=== PATIENT | female | born 1945 | race Caucasian/White ===

== ENCOUNTER 2021-02-03 14:55 | Inpatient (IN) ==
--- NOTE | 2021-02-03 15:20 | Emergency Department Note ---
Altered Mental Status HPI General Chief Complaint: Altered Mental Status Stated Complaint: confusion hypernatremia Time Seen by Provider: 02/03/21 15:07 Source: EMS and other Mode of arrival: EMS Limitations: altered mental status History of Present Illness HPI Narrative: This a 76-year-old female patient who lives in an adult family home with baseline cognitive dysfunction who's had worsening altered mental status over the last 2 1/2 weeks. She saw her PCP, Estelita Tirado, yesterday, and had lab work drawn that revealed a sodium of 154. For this reason she was sent over here today for evaluation. The patient has a POLST form that clearly states DNR/DNI comfort measures only. This was signed by her in 2019. Patient is currently confused and does not have executive function to verify this. I have discussed her with her primary care provider, Estelita Tirado, who states that this patient is significantly altered from her baseline and she is concerned that she has a UTI and is likely dehydrated and would like to have her admitted if indicated. The patient does not have a DPOA, and per talking to her adult family home they are working on obtaining guardianship for her. The patient is altered and unable to give me either a clear medical history or review of systems. Related Data Home Medications Medication Instructions Recorded Confirmed diltiazem HCl 30 mg PO TID 10/03/17 02/04/21 docusate sodium [Dulcolax Stool 100 mg PO DAILYP PRN 10/03/17 02/04/21 Softener] lorazepam 0.5 mg PO TID 10/03/17 02/04/21 polyethylene glycol 3350 [Miralax] 17 gm PO DAILY 10/03/17 02/04/21 sertraline 100 mg PO QHS 10/03/17 02/04/21 albuterol sulfate [Ventolin HFA] 2 puff INHALATION QAM 04/27/20 02/04/21 alprazolam [Xanax] 0.5 mg PO TID 04/27/20 02/04/21 betamethasone, augmented 1 applic TOPICAL BID 04/27/20 02/04/21 [Diprolene] minocycline 100 mg PO BID 04/27/20 02/04/21 naproxen sodium 220 - 440 mg PO BID 04/27/20 02/04/21 trazodone 50 mg PO QHS 04/27/20 02/04/21 nystatin 1 applic TOPICAL BIDP PRN 04/29/20 02/04/21 furosemide 40 mg PO QAM 02/03/21 02/04/21 metolazone 2.5 mg PO 3XW 02/03/21 02/04/21 spironolactone 25 mg PO QAM 02/03/21 02/04/21 triamcinolone acetonide 1 applic TOPICAL BID 02/03/21 02/04/21 alprazolam 0.5 mg PO Q6HP PRN 02/04/21 02/04/21 [id number]-vit [id number]-yxlmq-uxqk-zeax 1 tab PO QAM 02/04/21 02/04/21 [Ocuvite Eye Plus Multi] potassium chloride [Klor-Con M20] 20 meq PO QDAY 02/04/21 02/04/21 trazodone 50 mg PO QHS PRN 02/04/21 02/04/21 Allergies Allergy/AdvReac Type Severity Reaction Status Date / Time Amoxicillin Allergy Unknown Unknown Verified 11/24/20 14:11 Erythromycin Base Allergy Unknown UNKNOWN Verified 11/24/20 14:11 [ERYTHROMYCIN BASE] terfenadine [From SELDANE] Allergy Unknown UNKNOWN Verified 11/24/20 14:11 Review of Systems ROS ROS Narrative: Narrative: Limitations: ROS unobtainable due to patients medical condition [facility] Narrative Patient History Narrative: Narrative: Medical/Surgical/Family History All Active Problems (Updated 02/03/21 @ 22:18 by Rolf Torrez MD) Urinary tract infection (Acute) Dehydration (Acute) Altered mental status (Acute) Acute hypernatremia (Acute) Acute hypokalemia (Acute) Non-ST elevation [place] (NSTEMI) (Acute) Urinary tract infection in female (Acute) SVT (supraventricular tachycardia) (Acute) ADA (acute kidney injury) (Acute) Altered mental status (Acute) Acute hypokalemia (Acute) Hypernatremia (Acute) Acute prerenal azotemia (Acute) SVT (supraventricular tachycardia) (Acute) Pneumonia (Acute) Medical History COPD (chronic obstructive pulmonary disease) GERD (gastroesophageal reflux disease) Social History Smoking Status: Former smoker Exam Narrative Narrative: General: Alert and oriented to self only. Mostly nonverbal, NAD, c achectic. HEENT: PERRLA, EOMI, normocephalic. Extremely dry mucous membranes. Facial wasting and normal dentition. Chest: Symmetric, no pain to palpation Respiratory: Lungs clear to auscultation bilaterally. No respiratory distress. Unlabored breathing. Heart: Regular rate and rhythm, no murmurs/clicks/rubs. Abdomen: Non-tender, Non distended, normal bowel tones. No organomegaly. Extremities: Warm and well perfused. No edema. DP 2+ bilaterally. No venous stasis. Neuro: No focal deficits. Cranial nerves II-XII normal. Skin: Warm dry, no rashes or lesions, no cyanosis. Psych: Normal mood and affect Heme/Lymph: No bruising General Limitations: altered mental status Course Course Course Narrative: 75-year-old female seen for worsening altered mental status and hypernatremia. Reevaluation(s) Reevaluation #1: Obtain basic labs, start IV fluids, obtain UA Reevaluation #2: UA is positive for UTI. I am giving her 1 g of IV ceftriaxone x1 dose. Sodium is 153. She also has an ADA with a creatinine of 1.7 and a BUN of 90. I have reached out to the hospitalist for admission. Disposition is pending. Vital Signs Vital signs: Vital Signs Temperature 98.7 F 02/03/21 15:02 Pulse Rate 101 H 02/03/21 15:02 Respiratory Rate 16 02/03/21 15:02 Blood Pressure 99/78 02/03/21 15:02 Pulse Oximetry (%) 94 02/03/21 15:02 Temperature 97.7 F 02/04/21 16:01 Pulse Rate 73 02/04/21 16:01 Respiratory Rate 8 L 02/04/21 16:01 Blood Pressure 92/59 02/04/21 16:01 Pulse Oximetry (%) 98 02/04/21 16:01 [facility] MDM Narrative Medical decision making narrative: Altered mental status Hypernatremia Hypokalemia Prerenal azotemia Patient is being admitted for the above. Patient has been signed out to Dr. Hernandez, hospitalist for admission. Lab Data Result diagrams: 02/04/21 04:12 02/04/21 04:12 Labs: Lab Results 0502/03/21 02/03/21 Range/Units 16:47 16:47 16:47 WBC 15.5 H (4.5-11.0) K/mcL RBC 5.12 (4.00-5.20) M/mcL Hgb 14.4 (12.0-15.0) g/dL Hct 45.7 (36.0-48.0) % MCV 89.3 (80.0-100.0) fL MCH 28.1 (26.0-34.0) pg MCHC 31.5 (31.0-36.0) g/dL RDW 16.1 H (11.5-14.5) % Plt Count 378 (140-440) K/mcL MPV 9.1 (7.4-10.4) fL Neut % (Auto) 85.2 H (38.0-78.0) % Lymph % (Auto) 6.7 L (15.0-49.0) % [place] % (Auto) 7.2 (1.0-12.0) % Eos % (Auto) 0.6 (0.0-7.0) % Baso % (Auto) 0.3 (0.0-2.0) % Lymph # (Auto) 1.04 L (1.50-4.80) K/mcL [place] # (Auto) 1.12 H (0.10-0.90) K/mcL Eos # (Auto) 0.09 (0.00-0.70) K/mcL Baso # (Auto) 0.05 (0.00-0.20) K/mcL Absolute Neutrophils 13.20 H (1.80-8.00) K/mcL Sodium 153 H (133-145) mmol/L Potassium 3.1 L (3.3-5.1) mmol/L Chloride 106 (96-108) mmol/L Carbon Dioxide 31 H (22-30) mmol/L Anion Gap 16.0 (8.0-16.0) BUN 90 H (8-23) mg/dL Creatinine 1.7 H (0.6-1.1) mg/dL GFR Calculation 29 Glucose 117 H (70-105) mg/dL Calcium 9.6 (8.6-10.4) mg/dL Magnesium 3.0 H (1.6-2.5) mg/dL Total Bilirubin 0.3 (0.1-1.0) mg/dL AST 15 (<32) U/L ALT 10 (<40) U/L Alkaline Phosphatase 136 H (39-117) U/L Total Protein 7.4 (5.9-8.4) gm/dL Albumin 3.9 (3.2-5.2) gm/dL Globulin 3.5 (2.2-3.7) gm/dL Albumin/Globulin Ratio 1.1 (1.0-2.3) Urine Color Urine Appearance (Clear) Urine pH (5.0-9.0) Ur Specific [place] (1.000-1.035) Urine Protein (Negative) mg/dL Urine Glucose (UA) (Negative) mg/dL Urine Ketones (Negative) mg/dL Urine Occult Blood (Negative) mg/dL Urine Nitrate (Negative) Urine Bilirubin (Negative) mg/dL Urine Urobilinogen mg/dL Ur Leukocyte Esterase (Negative) /ug Urine RBC (0-3) /hpf Urine WBC (0-4) /hpf Ur Squamous Epith Cells (0-4) /hpf Urine Bacteria (0) /hpf Hyaline Casts (0-2) /lph Ur Culture Indicated? 02/03/21 Range/Units 17:19 WBC (4.5-11.0) K/mcL RBC (4.00-5.20) M/mcL Hgb (12.0-15.0) g/dL Hct (36.0-48.0) % MCV (80.0-100.0) fL MCH (26.0-34.0) pg MCHC (31.0-36.0) g/dL RDW (11.5-14.5) % Plt Count (140-440) K/mcL MPV (7.4-10.4) fL Neut % (Auto) (38.0-78.0) % Lymph % (Auto) (15.0-49.0) % [place] % (Auto) (1.0-12.0) % Eos % (Auto) (0.0-7.0) % Baso % (Auto) (0.0-2.0) % Lymph # (Auto) (1.50-4.80) K/mcL [place] # (Auto) (0.10-0.90) K/mcL Eos # (Auto) (0.00-0.70) K/mcL Baso # (Auto) (0.00-0.20) K/mcL Absolute Neutrophils (1.80-8.00) K/mcL Sodium (133-145) mmol/L Potassium (3.3-5.1) mmol/L Chloride (96-108) mmol/L Carbon Dioxide (22-30) mmol/L Anion Gap (8.0-16.0) BUN (8-23) mg/dL Creatinine (0.6-1.1) mg/dL GFR Calculation Glucose (70-105) mg/dL Calcium (8.6-10.4) mg/dL Magnesium (1.6-2.5) mg/dL Total Bilirubin (0.1-1.0) mg/dL AST (<32) U/L ALT (<40) U/L Alkaline Phosphatase (39-117) U/L Total Protein (5.9-8.4) gm/dL Albumin (3.2-5.2) gm/dL Globulin (2.2-3.7) gm/dL Albumin/Globulin Ratio (1.0-2.3) Urine Color Yellow Urine Appearance Hazy A (Clear) Urine pH 5.0 (5.0-9.0) Ur Specific [place] 1.011 (1.000-1.035) Urine Protein Negative (Negative) mg/dL Urine Glucose (UA) Negative (Negative) mg/dL Urine Ketones Negative (Negative) mg/dL Urine Occult Blood Negative (Negative) mg/dL Urine Nitrate Negative (Negative) Urine Bilirubin Negative (Negative) mg/dL Urine Urobilinogen Negative mg/dL Ur Leukocyte Esterase 75 A (Negative) /ug Urine RBC 1 (0-3) /hpf Urine WBC 5 H (0-4) /hpf Ur Squamous Epith Cells 3 (0-4) /hpf Urine Bacteria Mod A (0) /hpf Hyaline Casts 46 H (0-2) /lph Ur Culture Indicated? Yes ED POC Tests ED POC Tests: GAY - SARS Antigen Negative Discharge Plan Patient/Caregiver Discharge Instructions Pt seen by HEALTH TEACHER/PA only: Yes Clinical Impression: Altered mental status, Acute hypokalemia, Hypernatremia, Acute prerenal azotemia, SVT (supraventricular tachycardia) Patient Disposition: Xfer As Inpt ([facility]) Condition: Fair Discharge Date/Time: 02/03/21 23:07
[2021-02-03] MEDS ORDERED: 0.9 % SODIUM CHLORIDE 1,000 ML IV ONE (16:35)
[2021-02-03 17:27] LABS: Basophils # (Auto) 0.05 K/mcL (0.00-0.20); Basophils % (Auto) 0.3 % (0.0-2.0); Eosinophils # (Auto) 0.09 K/mcL (0.00-0.70); Eosinophils % (Auto) 0.6 % (0.0-7.0); Hematocrit 45.7 % (36.0-48.0); Hemoglobin 14.4 g/dL (12.0-15.0); Lymphocytes # (Auto) 1.04 K/mcL (1.50-4.80); Lymphocytes % (Auto) 6.7 % (15.0-49.0); Mean Cell Volume 89.3 fL (80.0-100.0); Mean Corpuscular HGB Conc 31.5 g/dL (31.0-36.0); Mean Platelet Volume 9.1 fL (7.4-10.4); Monocytes # (Auto) 1.12 K/mcL (0.10-0.90); Monocytes % (Auto) 7.2 % (1.0-12.0); Neutrophils % (Auto) 85.2 % (38.0-78.0); Platelet Count 378 K/mcL (140-440); RBC 5.12 M/mcL (4.00-5.20); Red Cell Distribution Width 16.1 % (11.5-14.5); WBC 15.5 K/mcL (4.5-11.0)
[2021-02-03 17:46] LABS: ALT/SGPT 10 U/L (<40); AST/SGOT 15 U/L (<32); Albumin 3.9 gm/dL (3.2-5.2); Albumin/Globulin Ratio 1.1 (1.0-2.3); Alkaline Phosphatase 136 U/L (39-117); Bilirubin,Total 0.3 mg/dL (0.1-1.0); Blood Urea Nitrogen 90 mg/dL (8-23); Calcium 9.6 mg/dL (8.6-10.4); Carbon Dioxide 31 mmol/L (22-30); Chloride 106 mmol/L (96-108); Globulin 3.5 gm/dL (2.2-3.7); Glomerular Filtration Rate 29; Glucose 117 mg/dL (70-105)
[2021-02-03] MEDS ORDERED: cefTRIAXone 1 GM VIAL IV ONE (17:59)
[2021-02-03 18:14] LABS: Appearance,Urine HAZY (Clear); Bacteria,Urine MOD /hpf (0); Bilirubin,Urine Negative (Negative); Color,Urine YELLOW; Culture Indicated,Urine Yes; Glucose,Urine (UA) Negative (Negative); Ketones,Urine Negative (Negative); Leukocyte Esterase,Urine 75 /ug (Negative); Nitrate,Urine Negative (Negative); Protein,Urine Negative (Negative); Specific Gravity,Urine 1.011 (1.000-1.035); Urine Blood Negative (Negative); Urine Hyaline Cast 46 /lph (0-2); Urine RBC 1 /hpf (0-3); Urine Squamous Epithelial Cell 3 /hpf (0-4); Urine WBC 5 /hpf (0-4); Urobilinogen,Urine Negative
[2021-02-03] MEDS ORDERED: DEXTROSE 5% IN WATER 1,000 ML IV SCH (19:45)
--- NOTE | 2021-02-03 19:54 | Internal Med History&Physical ---
HPI History of Present Illness Patient information: Note initiated : 02/03/21 at 7:45 pm Service Date, if different from initiated Date: [] Patient: Billie Mojica a 75 y/o F admitted on for Confusion Hypernatremia. Chief Complaint: [] History of present illness: Ms. Mojica is a 75 year old F Patient sent into the primary care provider by the nursing facility because she is had confusion for the past couple weeks. He had lab work done at Dr. Tirado's and found have a sodium of 154 and there was also concern for urinary tract infection so patient was sent to the hospital. Patient had an identical ED visit in November for the same reason with the same findings. However, she was a DNR/comfort care data's and so this was discussed with family member and patient was transitioned back to the nursing facility for comfort care measures. She is admitted this time at the request to treat UTI and correct electrolytes to see if her mentation improves because we do not have a power of immigration attorney and guardianship has not been established. Is clear the end of life goals and plan need to be addressed. CT brain done last admit was unremarkable. Urinalysis consistent with infection. Patient is a poor historian. And answer some simple review of systems question but does not know why she is here. Review of Systems: Pertinent positives as above. Denies headache/fever/chills/nausea/vomiting/chest or abdominal pain/cough/dyspnea/diarrhea. Many 10 point review of system reviewed negative PFSH PFSH All Active Problems (Updated 02/03/21 @ 19:56 by Sidra Tate PA-C) Urinary tract infection (Acute) Dehydration (Acute) Altered mental status (Acute) Acute hypernatremia (Acute) Acute hypokalemia (Acute) Non-ST elevation [place] (NSTEMI) (Acute) Urinary tract infection in female (Acute) SVT (supraventricular tachycardia) (Acute) ADA (acute kidney injury) (Acute) Altered mental status (Acute) Acute hypokalemia (Acute) Hypernatremia (Acute) Acute prerenal azotemia (Acute) Pneumonia (Acute) Medical History COPD (chronic obstructive pulmonary disease) GERD (gastroesophageal reflux disease) MEDS/ALLERGIES Home Medications and Allergies Home Medications Medication Instructions Recorded Confirmed Type diltiazem HCl 30 mg PO TID 10/03/17 02/03/21 History docusate sodium [Dulcolax Stool 100 mg PO DAILYP PRN 10/03/17 02/03/21 History Softener] lorazepam 0.5 mg PO BID 10/03/17 02/03/21 History polyethylene glycol 3350 [Miralax] 17 gm PO DAILY 10/03/17 02/03/21 History sertraline 50 mg PO DAILY 10/03/17 02/03/21 History albuterol sulfate [Ventolin HFA] 2 puff INHALATION DAILY 04/27/20 02/03/21 History alprazolam [Xanax] 0.25 mg PO TID 04/27/20 02/03/21 History betamethasone, augmented 1 applic TOPICAL BID 04/27/20 04/29/20 History [Diprolene] minocycline 100 mg PO BID 04/27/20 04/29/20 History naproxen sodium 440 mg PO BID 04/27/20 02/03/21 History nitrofurantoin monohyd/m-cryst 100 mg PO BID #14 cap 04/27/20 04/29/20 Rx [Macrobid] trazodone 50 mg PO QHS 04/27/20 02/03/21 History nystatin 1 applic TOPICAL BIDP PRN 04/29/20 02/03/21 History peg 3350-electrolytes [Golytely] 240 ml PO Q10M #4000 ml 04/29/20 Rx potassium chloride 20 meq PO ONCE #7 tab 11/24/20 02/03/21 Rx furosemide 40 mg PO DAILY 02/03/21 02/03/21 History metolazone 2.5 mg PO DAILY 02/03/21 02/03/21 History spironolactone 25 mg PO DAILY 02/03/21 02/03/21 History triamcinolone acetonide 1 applic TOPICAL BID 02/03/21 02/03/21 History Allergies Allergy/AdvReac Type Severity Reaction Status Date / Time Amoxicillin Allergy Unknown Unknown Verified 11/24/20 14:11 Erythromycin Base Allergy Unknown UNKNOWN Verified 11/24/20 14:11 [ERYTHROMYCIN BASE] terfenadine [From SELDANE] Allergy Unknown UNKNOWN Verified 11/24/20 14:11 EXAM Constitutional Vitals: Temp Pulse Resp BP Pulse Ox 98.7 F 86 16 99/78 95 02/03/21 15:02 02/03/21 18:57 02/03/21 15:02 02/03/21 15:02 02/03/21 18:57 Exam: General: Awake, No acute Distress Eyes/N/T: EOMI, PERRL, dry MM Head/Neck: neck supple, normocephalic atraumatic CV: RRR, No murmurs, normal s1/s2 Pulm: Clear b/l, no wheezing/rhonchi/rales Abd: soft, nontender, +BS x4 Ext: no clubbing/cyanosis/edema Neuro: Awake but appears drowsy. Alert and oriented x1. Follows commands and moves all extremities skin: warm/dry DATA Data Completed and Pending Labs: Labs from last 24 hours 02/03/21 02/03/21 02/03/21 17:19 16:47 16:47 WBC 15.5 H RBC 5.12 Hgb 14.4 Hct 45.7 MCV 89.3 MCH 28.1 MCHC 31.5 RDW 16.1 H Plt Count 378 MPV 9.1 Neut % (Auto) 85.2 H Lymph % (Auto) 6.7 L [place] % (Auto) 7.2 Eos % (Auto) 0.6 Baso % (Auto) 0.3 Lymph # (Auto) 1.04 L [place] # (Auto) 1.12 H Eos # (Auto) 0.09 Baso # (Auto) 0.05 Absolute Neutrophils 13.20 H Sodium 153 H Potassium 3.1 L Chloride 106 Carbon Dioxide 31 H Anion Gap 16.0 BUN 90 H Creatinine 1.7 H GFR Calculation 29 Glucose 117 H Calcium 9.6 Total Bilirubin 0.3 AST 15 ALT 10 Alkaline Phosphatase 136 H Total Protein 7.4 Albumin 3.9 Globulin 3.5 Albumin/Globulin Ratio 1.1 Urine Color Yellow Urine Appearance Hazy A Urine pH 5.0 Ur Specific [place] 1.011 Urine Protein Negative Urine Glucose (UA) Negative Urine Ketones Negative Urine Occult Blood Negative Urine Nitrate Negative Urine Bilirubin Negative Urine Urobilinogen Negative Ur Leukocyte Esterase 75 A Urine RBC 1 Urine WBC 5 H Ur Squamous Epith Cells 3 Urine Bacteria Mod A Hyaline Casts 46 H Ur Culture Indicated? 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
[2021-02-03] MEDS ORDERED: ADENOSINE 3 MG/ML VIAL IV ONE (21:15)
[2021-02-03] MEDS: ADENOSINE 3 MG/ML VIAL IV ONE ×2 (21:15→23:00)
[2021-02-03] MEDS ORDERED: AMIODARONE 150 MG/3 ML VIAL IV ONE (21:34)
[2021-02-03] MEDS ORDERED: AMIODARONE 360 MG in PREMIX 1 BAG IV SCH ×2 (21:45→23:08)
--- NOTE | 2021-02-03 22:20 | Emergency Department Note ---
HPI General Chief complaint: Altered Mental Status Stated complaint: confusion hypernatremia Time Seen by Provider: 02/03/21 15:07 Source: EMS and other Mode of arrival: EMS Limitations: altered mental status History of Present Illness HPI Narrative: Narrative: Related Data Home Medications Medication Instructions Recorded Confirmed diltiazem HCl 30 mg PO TID 10/03/17 02/03/21 docusate sodium [Dulcolax Stool 100 mg PO DAILYP PRN 10/03/17 02/03/21 Softener] lorazepam 0.5 mg PO BID 10/03/17 02/03/21 polyethylene glycol 3350 [Miralax] 17 gm PO DAILY 10/03/17 02/03/21 sertraline 50 mg PO DAILY 10/03/17 02/03/21 albuterol sulfate [Ventolin HFA] 2 puff INHALATION DAILY 04/27/20 02/03/21 alprazolam [Xanax] 0.25 mg PO TID 04/27/20 02/03/21 betamethasone, augmented 1 applic TOPICAL BID 04/27/20 04/29/20 [Diprolene] minocycline 100 mg PO BID 04/27/20 04/29/20 naproxen sodium 440 mg PO BID 04/27/20 02/03/21 trazodone 50 mg PO QHS 04/27/20 02/03/21 nystatin 1 applic TOPICAL BIDP PRN 04/29/20 02/03/21 furosemide 40 mg PO DAILY 02/03/21 02/03/21 metolazone 2.5 mg PO DAILY 02/03/21 02/03/21 spironolactone 25 mg PO DAILY 02/03/21 02/03/21 triamcinolone acetonide 1 applic TOPICAL BID 02/03/21 02/03/21 Previous Rx's Medication Instructions Recorded nitrofurantoin monohyd/m-cryst 100 mg PO BID #14 cap 04/27/20 [Macrobid] peg 3350-electrolytes [Golytely] 240 ml PO Q10M #4000 ml 04/29/20 potassium chloride 20 meq PO ONCE #7 tab 11/24/20 Allergies Allergy/AdvReac Type Severity Reaction Status Date / Time Amoxicillin Allergy Unknown Unknown Verified 11/24/20 14:11 Erythromycin Base Allergy Unknown UNKNOWN Verified 11/24/20 14:11 [ERYTHROMYCIN BASE] terfenadine [From SELDANE] Allergy Unknown UNKNOWN Verified 11/24/20 14:11 Review of Systems ROS ROS Narrative: Narrative: [facility] Narrative Patient History Narrative: Narrative: Medical/Surgical/Family History All Active Problems (Updated 02/03/21 @ 22:18 by Rolf Torrez MD) Urinary tract infection (Acute) Dehydration (Acute) Altered mental status (Acute) Acute hypernatremia (Acute) Acute hypokalemia (Acute) Non-ST elevation [place] (NSTEMI) (Acute) Urinary tract infection in female (Acute) SVT (supraventricular tachycardia) (Acute) ADA (acute kidney injury) (Acute) Altered mental status (Acute) Acute hypokalemia (Acute) Hypernatremia (Acute) Acute prerenal azotemia (Acute) SVT (supraventricular tachycardia) (Acute) Pneumonia (Acute) Medical History COPD (chronic obstructive pulmonary disease) GERD (gastroesophageal reflux disease) Social History Smoking Status: Former smoker Exam Narrative Narrative: Narrative: General Limitations: altered mental status Course Vital Signs Vital signs: Vital Signs Temperature 98.7 F 02/03/21 15:02 Pulse Rate 101 H 02/03/21 15:02 Respiratory Rate 16 02/03/21 15:02 Blood Pressure 99/78 02/03/21 15:02 Pulse Oximetry (%) 94 02/03/21 15:02 Temperature 98.7 F 02/03/21 15:02 Pulse Rate 88 02/03/21 22:01 Respiratory Rate 9 L 02/03/21 22:01 Blood Pressure 100/61 02/03/21 22:01 Pulse Oximetry (%) 98 02/03/21 22:01 [facility] Narrative Medical decision making narrative: Narrative: Lab Data Result diagrams: 02/03/21 16:47 02/03/21 16:47 Labs: Lab Results 02/03/21 02/03/21 02/03/21 Range/Units 16:47 16:47 16:47 WBC 15.5 H (4.5-11.0) K/mcL RBC 5.12 (4.00-5.20) M/mcL Hgb 14.4 (12.0-15.0) g/dL Hct 45.7 (36.0-48.0) % MCV 89.3 (80.0-100.0) fL MCH 28.1 (26.0-34.0) pg MCHC 31.5 (31.0-36.0) g/dL RDW 16.1 H (11.5-14.5) % Plt Count 378 (140-440) K/mcL MPV 9.1 (7.4-10.4) fL Neut % (Auto) 85.2 H (38.0-78.0) % Lymph % (Auto) 6.7 L (15.0-49.0) % [place] % (Auto) 7.2 (1.0-12.0) % Eos % (Auto) 0.6 (0.0-7.0) % Baso % (Auto) 0.3 (0.0-2.0) % Lymph # (Auto) 1.04 L (1.50-4.80) K/mcL [place] # (Auto) 1.12 H (0.10-0.90) K/mcL Eos # (Auto) 0.09 (0.00-0.70) K/mcL Baso # (Auto) 0.05 (0.00-0.20) K/mcL Absolute Neutrophils 13.20 H (1.80-8.00) K/mcL Sodium 153 H (133-145) mmol/L Potassium 3.1 L (3.3-5.1) mmol/L Chloride 106 (96-108) mmol/L Carbon Dioxide 31 H (22-30) mmol/L Anion Gap 16.0 (8.0-16.0) BUN 90 H (8-23) mg/dL Creatinine 1.7 H (0.6-1.1) mg/dL GFR Calculation 29 Glucose 117 H (70-105) mg/dL Calcium 9.6 (8.6-10.4) mg/dL Magnesium 3.0 H (1.6-2.5) mg/dL Total Bilirubin 0.3 (0.1-1.0) mg/dL AST 15 (<32) U/L ALT 10 (<40) U/L Alkaline Phosphatase 136 H (39-117) U/L Total Protein 7.4 (5.9-8.4) gm/dL Albumin 3.9 (3.2-5.2) gm/dL Globulin 3.5 (2.2-3.7) gm/dL Albumin/Globulin Ratio 1.1 (1.0-2.3) Urine Color Urine Appearance (Clear) Urine pH (5.0-9.0) Ur Specific [place] (1.000-1.035) Urine Protein (Negative) mg/dL Urine Glucose (UA) (Negative) mg/dL Urine Ketones (Negative) mg/dL Urine Occult Blood (Negative) mg/dL Urine Nitrate (Negative) Urine Bilirubin (Negative) mg/dL Urine Urobilinogen mg/dL Ur Leukocyte Esterase (Negative) /ug Urine RBC (0-3) /hpf Urine WBC (0-4) /hpf Ur Squamous Epith Cells (0-4) /hpf Urine Bacteria (0) /hpf Hyaline Casts (0-2) /lph Ur Culture Indicated? 02/03/21 Range/Units 17:19 WBC (4.5-11.0) K/mcL RBC (4.00-5.20) M/mcL Hgb (12.0-15.0) g/dL Hct (36.0-48.0) % MCV (80.0-100.0) fL MCH (26.0-34.0) pg MCHC (31.0-36.0) g/dL RDW (11.5-14.5) % Plt Count (140-440) K/mcL MPV (7.4-10.4) fL Neut % (Auto) (38.0-78.0) % Lymph % (Auto) (15.0-49.0) % [place] % (Auto) (1.0-12.0) % Eos % (Auto) (0.0-7.0) % Baso % (Auto) (0.0-2.0) % Lymph # (Auto) (1.50-4.80) K/mcL [place] # (Auto) (0.10-0.90) K/mcL Eos # (Auto) (0.00-0.70) K/mcL Baso # (Auto) (0.00-0.20) K/mcL Absolute Neutrophils (1.80-8.00) K/mcL Sodium (133-145) mmol/L Potassium (3.3-5.1) mmol/L Chloride (96-108) mmol/L Carbon Dioxide (22-30) mmol/L Anion Gap (8.0-16.0) BUN (8-23) mg/dL Creatinine (0.6-1.1) mg/dL GFR Calculation Glucose (70-105) mg/dL Calcium (8.6-10.4) mg/dL Magnesium (1.6-2.5) mg/dL Total Bilirubin (0.1-1.0) mg/dL AST (<32) U/L ALT (<40) U/L Alkaline Phosphatase (39-117) U/L Total Protein (5.9-8.4) gm/dL Albumin (3.2-5.2) gm/dL Globulin (2.2-3.7) gm/dL Albumin/Globulin Ratio (1.0-2.3) Urine Color Yellow Urine Appearance Hazy A (Clear) Urine pH 5.0 (5.0-9.0) Ur Specific [place] 1.011 (1.000-1.035) Urine Protein Negative (Negative) mg/dL Urine Glucose (UA) Negative (Negative) mg/dL Urine Ketones Negative (Negative) mg/dL Urine Occult Blood Negative (Negative) mg/dL Urine Nitrate Negative (Negative) Urine Bilirubin Negative (Negative) mg/dL Urine Urobilinogen Negative mg/dL Ur Leukocyte Esterase 75 A (Negative) /ug Urine RBC 1 (0-3) /hpf Urine WBC 5 H (0-4) /hpf Ur Squamous Epith Cells 3 (0-4) /hpf Urine Bacteria Mod A (0) /hpf Hyaline Casts 46 H (0-2) /lph Ur Culture Indicated? Yes ED POC Tests ED POC Tests: GAY - SARS Antigen Negative EKG Data EKG #1: EKG attestation: Yes I reviewed and interpreted this EKG., Yes There are no EKG findings of acute coronary syndrome and Yes This EKG will be read by csr retail EKG results narrative: Narrow complex tachycardia with diffuse ST segment depression which is most likely rate related, left axis deviation EKG #2: EKG attestation: Yes I reviewed and interpreted this EKG., Yes There are no EKG findings of acute coronary syndrome and Yes This EKG will be read by csr retail EKG results narrative: Post adenosine EKG shows a normal sinus rhythm with a rate of 76, left anterior fascicular block, criteria for LVH, occasional ectopy CC TIME Critical Care Time Critical Care Time: Yes Total Critical Care Time: 30 Attestation: Approximately 30 minutes of critical care time was used in order to assess and manage the high probability of imminent or life threatening deterioration which required my highest level of preparedness and interventions with frequent patient assessments. This time is excluding time spent on separately billable procedures. At this time I became involved in this patient's care she was pending admission to the medical floor. I was notified by the nursing staff that she had a heart rate of 160. At this time she was placed on a monitor to confirm this heart rate. An EKG was also obtained which showed a narrow complex tachycardia suggestive of SVT. The patient was treated with a single dose of adenosine at 6 mg. She did convert to a normal sinus rhythm. I did discuss the case with the admitting hospitalist regarding the patient's status. In the interim she did have another brief run of SVT. At this time after coordination with the hospitalist I did order amiodarone bolus and drip and was preparing to treat the patient again with adenosine. The patient, fortunately converted without any further treatment. The patient's disposition has been changed to the ICU. Discharge Plan Patient/Caregiver Discharge Instructions Pt seen by SUCTION DREDGE DUMPING SUPERVISOR/PA only: Yes Clinical Impression: Altered mental status, Acute hypokalemia, Hypernatremia, Acute prerenal azotemia, SVT (supraventricular tachycardia) Patient Disposition: Xfer As Inpt ([facility]) Condition: Fair Follow up with: Estelita Tirado MD [Primary Care Provider] - Prescriptions: No Action polyethylene glycol 3350 [Miralax] 17 GM powder in packet 17 gm PO DAILY RF: 0 docusate sodium [DulcoEase] 100 MG capsule 100 mg PO DAILYP PRN (Reason: Constipation) RF: 0 lorazepam 1 MG tablet 0.5 mg PO BID RF: 0 diltiazem HCl 30 MG tablet 30 mg PO TID RF: 0 sertraline 50 MG tablet 50 mg PO DAILY RF: 0 trazodone 50 mg Tablet 50 mg PO QHS RF: 0 minocycline 100 mg Capsule 100 mg PO BID RF: 0 alprazolam [Xanax] 0.25 mg tablet 0.25 mg PO TID RF: 0 betamethasone, augmented [Diprolene (augmented)] 0.05 % Ointment 1 applic TOPICAL BID RF: 0 albuterol sulfate [Ventolin HFA] 90 mcg/actuation Hfa Aerosol Inhaler 2 puff INHALATION DAILY RF: 0 naproxen sodium 220 mg Capsule 440 mg PO BID RF: 0 nitrofurantoin monohyd/m-cryst [Macrobid] 100 mg capsule 100 mg PO BID Qty: 14 RF: 0 nystatin 100,000 unit/gram Powder 1 applic TOPICAL BIDP PRN (Reason: rash under breast) RF: 0 peg 3350-electrolytes [Golytely] 236-22.74-6.74 -5.86 gram recon soln 240 ml PO Q10M Qty: 4000 RF: 0 potassium chloride 20 mEq tablet extended release 20 meq PO ONCE Qty: 7 RF: 0 furosemide 40 mg tablet 40 mg PO DAILY RF: 0 metolazone 2.5 mg tablet 2.5 mg PO DAILY RF: 0 triamcinolone acetonide 0.1 % cream 1 applic TOPICAL BID RF: 0 spironolactone 25 mg tablet 25 mg PO DAILY RF: 0
[2021-02-03] MEDS: DEXTROSE 5% IN WATER 1,000 ML IV SCH (23:05)
[2021-02-03] MEDS: 0.9 % SODIUM CHLORIDE 10 ML SYRINGE IV SCH (23:05)
[2021-02-03] MEDS ORDERED: MAGNESIUM SULFATE 2 GM/50 ML BAG IV PRN (23:08)
[2021-02-03] MEDS ORDERED: LORazepam (PP) 1 MG TABLET (#4) PO PRN (23:08)
[2021-02-03] MEDS ORDERED: POTASSIUM CHLORIDE 20 MEQ TABLET PO PRN (23:08)
[2021-02-03] MEDS ORDERED: IPRATROPIUM/ALBUTEROL 3 ML AMPUL.NEB NEB PRN (23:08)
[2021-02-03] MEDS ORDERED: cefTRIAXone 1 GM in DEXTROSE 5% IN WATER 50 ML IV SCH (23:08)
[2021-02-03] MEDS ORDERED: SENNOSIDES 1 TABLET PO PRN (23:08)
[2021-02-03] MEDS ORDERED: ONDANSETRON 4 MG/2 ML VIAL IV PRN (23:08)
[2021-02-03] MEDS ORDERED: ACETAMINOPHEN 325 MG TABLET PO PRN (23:08)
[2021-02-04] MEDS ORDERED: METOPROLOL TARTRATE 5 MG/5 ML VIAL IV ONE ×2 (00:15→12:28)
[2021-02-04] MEDS ORDERED: POTASSIUM CHLORIDE 20 MEQ TABLET PO ONE ×2 (00:26→04:35)
[2021-02-04] MEDS: POTASSIUM CHLORIDE 20 MEQ TABLET PO PRN (00:37)
[2021-02-04] MEDS: DOCUSATE SODIUM 100 MG CAPSULE PO SCH ×3 (00:40→20:30)
[2021-02-04 00:46] LABS: POC Calcium, Ionized 0.98 mmEq/L (1.16-1.32); POC Creatinine 1.5 mg/dL (0.6-1.2); POC Potassium 3.6 mEql/L (3.3-5.1)
[2021-02-04] MEDS ORDERED: traZODone HCL 50 MG TABLET ONE (00:50)
[2021-02-04] MEDS ORDERED: ALPRAZolam 0.5 MG TABLET ONE (00:50)
[2021-02-04] MEDS: traZODone HCL 50 MG TABLET PO SCH ×2 (00:51→20:29)
[2021-02-04] MEDS: ALPRAZolam 0.25 MG TABLET PO SCH ×4 (00:51→20:30)
[2021-02-04] MEDS: METOPROLOL TARTRATE 5 MG/5 ML VIAL IV PRN ×2 (03:39→12:15)
[2021-02-04 04:25] LABS: POC Blood Urea Nitrogen 62 mg/dL (6-20); POC CO2 29 mmol/L (22-30); POC Calcium, Ionized 0.97 mmEq/L (1.16-1.32); POC Chloride 112 mEq/L (96-108); POC Creatinine 1.4 mg/dL (0.6-1.2); POC Glucose, Random 129 mg/dL (70-105); POC Hematocrit 31 % (36-48); POC Potassium 2.9 mEql/L (3.3-5.1); POC Sodium 149 mEq/L (133-145)
[2021-02-04] MEDS ORDERED: ADENOSINE 3 MG/ML VIAL IV ONE (04:34)
[2021-02-04] MEDS ORDERED: POTASSIUM CHLORIDE 20 MEQ/10 ML VIAL IV ONE (04:39)
[2021-02-04] MEDS: POTASSIUM CHLORIDE 40 MEQ in DEXTROSE 5% IN WATER 500 ML IV PRN (04:45)
[2021-02-04] MEDS: 0.9 % SODIUM CHLORIDE 10 ML SYRINGE IV SCH ×3 (05:52→20:30)
[2021-02-04] MEDS ORDERED: LORazepam 0.5 MG TABLET PO PRN (06:15)
[2021-02-04 06:39] LABS: Basophils # (Auto) 0.05 K/mcL (0.00-0.20); Basophils % (Auto) 0.3 % (0.0-2.0); Eosinophils # (Auto) 0.08 K/mcL (0.00-0.70); Eosinophils % (Auto) 0.5 % (0.0-7.0); Hematocrit 38.4 % (36.0-48.0); Lymphocytes # (Auto) 1.15 K/mcL (1.50-4.80); Lymphocytes % (Auto) 7.9 % (15.0-49.0); Mean Cell Volume 88.7 fL (80.0-100.0); Mean Corpuscular HGB Conc 31.3 g/dL (31.0-36.0); Mean Platelet Volume 9.7 fL (7.4-10.4); Monocytes # (Auto) 0.86 K/mcL (0.10-0.90); Monocytes % (Auto) 5.9 % (1.0-12.0); Neutrophils % (Auto) 85.4 % (38.0-78.0); Platelet Count 256 K/mcL (140-440); RBC 4.33 M/mcL (4.00-5.20); WBC 14.6 K/mcL (4.5-11.0)
[2021-02-04 07:25] LABS: ALT/SGPT < 5 U/L (<40); AST/SGOT 18 U/L (<32); Albumin 2.9 gm/dL (3.2-5.2); Alkaline Phosphatase 104 U/L (39-117); Bilirubin,Direct < 0.2 mg/dL (0-0.3); Bilirubin,Total 0.3 mg/dL (0.1-1.0); Blood Urea Nitrogen 68 mg/dL (8-23); Calcium 8.3 mg/dL (8.6-10.4); Carbon Dioxide 23 mmol/L (22-30); Chloride 111 mmol/L (96-108); Globulin 2.8 gm/dL (2.2-3.7); Glomerular Filtration Rate 44; Glucose 111 mg/dL (70-105); Lactate Dehydrogenase 275 U/L (135-225); Phosphorous 2.5 mg/dL (2.5-4.5); Triglycerides 175 mg/dL (<150); Uric Acid 10.4 mg/dL (2.5-8.0)
[2021-02-04] MEDS ORDERED: POTASSIUM CHLORIDE 40 MEQ in DEXTROSE 5% IN WATER 500 ML IV ONE (07:39)
--- NOTE | 2021-02-04 07:40 | Internal Med Progress Note ---
SUBJECTIVE Subjective Patient information: Note initiated : 02/04/21 at 7:34 am Service Date, if different from initiated Date: [] Patient: Billie Mojica a 75 y/o F admitted on 02/03/21 for Confusion Hypernatremia. Chief Complaint: [] Interval history: History of present illness: Ms. Mojica is a 75 year old F Patient sent into the primary care provider by the nursing facility because she is had confusion for the past couple weeks. He had lab work done at Dr. Tirado's and found have a sodium of 154 and there was also concern for urinary tract infection so patient was sent to the hospital. Patient had an identical ED visit in November for the same reason with the same findings. However, she was a DNR/comfort care data's and so this was discussed with family member and patient was transitioned back to the nursing facility for comfort care measures. She is admitted this time at the request to treat UTI and correct electrolytes to see if her mentation improves because we do not have a power of trademark attorney and guardianship has not been established. Is clear the end of life goals and plan need to be addressed. CT brain done last admit was unremarkable. Urinalysis consistent with infection. Patient is a poor historian. And answer some simple review of systems question but does not know why she is here. Patient went into SVT was aborted with adenosine and then went into it later. 02/04 Patient had a few runs of SVT overnight aborted with as needed IV Lopressor. Constitutional Vitals: Vital Signs Temp Pulse Resp BP Pulse Ox 98.6 F 74 11 L 86/56 100 02/04/21 06:03 02/04/21 07:00 02/04/21 07:07 02/04/21 07:00 02/04/21 07:00 Period Temp Pulse Resp BP Sys/Montesinos Pulse Ox Last 24 Hr 98.1 F-98.7 F 71-163 7-25 72-104/49-78 91-100 Intake and Output 02/03/21 02/04/21 02/04/21 21:59 05:59 13:59 Intake Total 1000 908 Output Total 875 Balance 1000 33 Weight 68.946 kg 56.109 kg Intake & Output: Intake & Output 02/03/21 02/04/21 02/04/21 21:59 05:59 13:59 Intake Total 1000 908 Output Total 875 Balance 1000 33 Weight 68.946 kg 56.109 kg Intake: IV 1000 708 Sodium Chloride 0.9% 1,000 ml @ 1000 Wide Open IV BOLUS ONE Rx#: [id number] Dextrose 5% in Water 1,000 ml @ 708 125 mls/hr IV .Q8H JASPAL Rx#: [id number] Oral 200 Output: Urine Catheter Amount 875 Other: Urine Appearance Clear Uretheral (Velez) Clear Clear Urine Color Dark Yellow Uretheral (Velez) Straw Dark Yellow Stool Size Small Moderate Stool Color Brown Brown Yellow Stool Consistency Liquid Liquid # of times incontinent of 1 1 Bowels Exam: General: Awake, No acute Distress Eyes/N/T: EOMI, Head/Neck: neck supple, CV: RRR, No murmurs, Pulm: Clear b/l, no wheezing/rhonchi/rales Abd: soft, nontender, +BS x4 Ext: no clubbing/cyanosis/edema Neuro: Awake, ,Follows commands and moves all extremities skin: warm/dry OBJ DATA Labs CBC & Chem 7: 02/04/21 04:12 02/04/21 04:12 Labs: Abnormal Lab Results 02/04/21 02/04/21 02/04/21 04:12 04:12 04:12 WBC 14.6 H POC Hct 31 L RDW 16.0 H Neut % (Auto) 85.4 H Lymph % (Auto) 7.9 L Lymph # (Auto) 1.15 L Alfalfa # (Auto) Absolute Neutrophils 12.48 H POC Sodium 149 H Sodium 150 H POC Potassium 2.9 L* Potassium POC Chloride 112 H Chloride 111 H Carbon Dioxide POC Total CO2 POC BUN 62 H BUN 68 H Creatinine 1.2 H POC Creatinine 1.4 H Glucose 111 H POC Glucose 129 H Uric Acid 10.4 H Calcium 8.3 L POC WB Ioniz Calcium 0.97 L Magnesium 2.6 H Alkaline Phosphatase Lactate Dehydrogenase 275 H Total Protein 5.7 L Albumin 2.9 L Triglycerides 175 H Urine Appearance Ur Leukocyte Esterase Urine WBC Urine Bacteria Hyaline Casts 02/04/21 02/03/21 02/03/21 00:32 17:19 16:47 WBC POC Hct 29 L RDW Neut % (Auto) Lymph % (Auto) Lymph # (Auto) [place]alfa # (Auto) Absolute Neutrophils POC Sodium 152 H Sodium POC Potassium Potassium POC Chloride 115 H Chloride Carbon Dioxide POC Total CO2 33 H POC BUN 89 H BUN Creatinine POC Creatinine 1.5 H Glucose POC Glucose 144 H Uric Acid Calcium POC WB Ioniz Calcium 0.98 L Magnesium 3.0 H Alkaline Phosphatase Lactate Dehydrogenase Total Protein Albumin Triglycerides Urine Appearance Hazy A Ur Leukocyte Esterase 75 A Urine WBC 5 H Urine Bacteria Mod A Hyaline Casts 46 H 02/03/21 02/03/21 16:47 16:47 WBC 15.5 H POC Hct RDW 16.1 H Neut % (Auto) 85.2 H Lymph % (Auto) 6.7 L Lymph # (Auto) 1.04 L [place] # (Auto) 1.12 H Absolute Neutrophils 13.20 H POC Sodium Sodium 153 H POC Potassium Potassium 3.1 L POC Chloride Chloride Carbon Dioxide 31 H POC Total CO2 POC BUN BUN 90 H Creatinine 1.7 H POC Creatinine Glucose 117 H POC Glucose Uric Acid Calcium POC WB Ioniz Calcium Magnesium Alkaline Phosphatase 136 H Lactate Dehydrogenase Total Protein Albumin Triglycerides Urine Appearance Ur Leukocyte Esterase Urine WBC Urine Bacteria Hyaline Casts Meds: Medications Acetaminophen (Acetaminophen 325 Mg Tablet) 650 mg PO Q6HP PRN PRN Reason: PAIN/FEVER > 101 Albuterol/Ipratropium (Ipratropium/Albuterol 3 Ml Ampul.Neb) 3 ml NEB Q4HP PRN PRN Reason: Shortness Of Breath Alprazolam (Alprazolam 0.25 Mg Tablet) 0.25 mg PO TID [facility] Last Admin: 02/04/21 00:51 Dose: 0.25 mg Documented by: Ceftriaxone Sodium (Ceftriaxone 1 Gm Vial) 1 gm IV Q24H [facility] Docusate Sodium (Docusate Sodium 100 Mg Capsule) 100 mg PO BID [facility] Last Admin: 02/04/21 00:40 Dose: Not Given Documented by: Enoxaparin Sodium (Enoxaparin 40 Mg/0.4 Ml Syringe) 40 mg SQ DAILY [facility] AMIODARONE 360 mg/ Premix 200 mls @ 16.667 mls/hr IV .Q12H [facility]; Protocol Last Admin: 02/03/21 23:05 Dose: Not Given Documented by: Potassium Chloride 40 meq/ (Dextrose) 520 mls @ 130 mls/hr IV UD PRN PRN Reason: Potassium < 3 Last Admin: 02/04/21 04:45 Dose: 130 mls/hr Documented by: Magnesium Sulfate (Magnesium Sulfate) 2 gm in 50 mls @ 50 mls/hr IV UD PRN PRN Reason: Magnesium </= 1.6 Dextrose (Dextrose 5% In Water) 1,000 mls @ 125 mls/hr IV .Q8H [facility] Last Infusion: 02/04/21 04:45 Dose: 0 mls/hr Documented by: Lorazepam (Lorazepam 0.5 Mg Tablet) 0.5 mg PO BIDP PRN PRN Reason: Agitation Metoprolol Tartrate (Metoprolol Tartrate 5 Mg/5 Ml Vial) 5 mg IV Q2HP PRN PRN Reason: Tachyarrhythmias HR>110 Last Admin: 02/04/21 03:39 Dose: 5 mg Documented by: Ondansetron HCl (Ondansetron 4 Mg/2 Ml Vial) 4 mg IV Q4HP PRN PRN Reason: Nausea And Vomiting Polyethylene Glycol (Polyethylene Glycol 3350 17 Gm Packet) 17 gm PO DAILY [facility] Potassium Chloride (Potassium Chloride 20 Meq Tablet) 40 meq PO UD PRN PRN Reason: Potssium is 3-3.5 Last Admin: 02/04/21 00:37 Dose: 40 meq Documented by: Potassium Chloride (Potassium Chloride 20 Meq Tablet) 40 meq PO UD PRN PRN Reason: Potassium < 3 Last Admin: 02/04/21 04:40 Dose: 40 meq Documented by: Senna (Sennosides 1 Tablet) 2 tab PO DAILYP PRN PRN Reason: Constipation Sertraline HCl (Sertraline 50 Mg Tablet) 50 mg PO DAILY [facility] Sodium Chloride (0.9 % Sodium Chloride 10 Ml Syringe) 10 ml IV Q8 [facility] Last Admin: 02/04/21 05:52 Dose: Not Given Documented by: Trazodone HCl (Trazodone Hcl 50 Mg Tablet) 50 mg PO QHS [facility] Last Admin: 02/04/21 00:51 Dose: 50 mg Documented by: A/P Narrative A/P Narrative: A: *Encephalopathy, metabolic: 2/2 electrolyte abnormalities and UTI *Hypernatremia: 2/2 poor oral intake *SVT: -also went into SVT during the November ED visit *chronically low BP, baseline: *UTI: *ADA on CKD: improving *Hypokalemia: *HTN: on diltiazem *Depression/anxiety: *goals of care: P: -d5w, f/u sodium -Rocephin, pending UC -home diltiazem, prn IV lopressor -Hold home furosemide/metolazone/?on aldactone -Continue depression medication - -PT OT -ppx: Lovenox DNR Time Spent With Patient Time: Total time spent is greater than 50% in coordination of care (as documented) at patient's floor/unit and/or counseling patient: QUALITY VTE Deep Vein Thrombosis/Pulmonary Embolism Present on Admission: No
[2021-02-04] MEDS: SERTRALINE 50 MG TABLET PO SCH (09:20)
[2021-02-04] MEDS: DILTIAZEM 30 MG TABLET PO SCH ×3 (09:20→20:30)
[2021-02-04] MEDS: ENOXAPARIN 40 MG/0.4 ML SYRINGE SQ SCH (09:21)
[2021-02-04] MEDS: POLYETHYLENE GLYCOL 3350 17 GM PACKET PO SCH (09:22)
[2021-02-04 09:28] LABS: POC Blood Urea Nitrogen 61 mg/dL (6-20); POC CO2 30 mmol/L (22-30); POC Chloride 108 mEq/L (96-108); POC Creatinine 1.5 mg/dL (0.6-1.2); POC Glucose, Random 96 mg/dL (70-105); POC Hematocrit 40 % (36-48); POC Potassium 3.6 mEql/L (3.3-5.1); POC Sodium 151 mEq/L (133-145)
[2021-02-04] MEDS: cefTRIAXone 1 GM VIAL IV SCH (09:43)
[2021-02-04] MEDS: DEXTROSE 5% IN WATER 1,000 ML IV SCH ×2 (12:16→17:12)
[2021-02-04] MEDS ORDERED: ADENOSINE 3 MG/ML VIAL IV PRN (12:18)
[2021-02-04 12:58] LABS: POC Blood Urea Nitrogen 54 mg/dL (6-20); POC CO2 28 mmol/L (22-30); POC Calcium, Ionized 1.14 mmEq/L (1.16-1.32); POC Chloride 111 mEq/L (96-108); POC Creatinine 1.3 mg/dL (0.6-1.2); POC Glucose, Random 144 mg/dL (70-105); POC Hematocrit 33 % (36-48); POC Potassium 3.7 mEql/L (3.3-5.1); POC Sodium 148 mEq/L (133-145)
[2021-02-04] MEDS ORDERED: AMIODARONE 150 MG in DEXTROSE 5% IN WATER 50 ML IV ONE (13:45)
[2021-02-04] MEDS ORDERED: VERAPAMIL 5 MG/2 ML VIAL IV ONE (13:46)
[2021-02-04] MEDS ORDERED: AMIODARONE 360 MG in PREMIX 1 BAG IV SCH ×2 (14:00→20:00)
--- NOTE | 2021-02-04 14:00 | EKG ---
[facility] Test Date: 2021-02-03 Pat Name: Billie Mojica Department: ED Room: Gender: Female Transmission Specialist: : 1945 Requested By: Rolf Torrez Order Number: [id number] Reading MD: Tawanda Flor M.D. Measurements Intervals [place] Rate: 94 P: 71 RI: 130 QRS: -48 QRSD: 99 T: 123 QT: 342 QTc: 428 Interpretive Statements Sinus rhythm Ventricular premature complex Left anterior fascicular block Repol abnrm suggests ischemia, anterolateral Baseline wander in lead(s) I,aVR No prior tracing for comparison. I reviewed and agree with the above findings. Electronically Signed On 02-04-2021 13:59:59 PDT by Tawanda Flor M.D. /store/M0/[id number]
--- NOTE | 2021-02-04 14:02 | EKG ---
[facility] Test Date: 2021-02-03 Pat Name: Billie Mojica Department: ED Room: Gender: Female Factory Maintenance Manager: : 1945 Requested By: Rolf Torrez Order Number: [id number] Reading MD: Tawanda Flor M.D. Measurements Intervals [place] Rate: 92 P: 0 OK: 170 QRS: -42 QRSD: 102 T: 132 QT: 368 QTc: 456 Interpretive Statements SINUS RHYTHM LEFT ANTERIOR FASCICULAR BLOCK CONSIDER POSTERIOR INFARCT REPOL ABNRM SUGGESTS ISCHEMIA, ANT-LAT LEADS No change since previous ECG performed on [id number] Electronically Signed On 02-04-2021 14:02:03 PDT by Tawanda Flor M.D. /[facility] [place]/M0/[id number]
--- NOTE | 2021-02-04 14:15 | EKG ---
[facility] Test Date: 2021-02-04 Pat Name: Billie Mojica Department: ICU Room: 120D Gender: Female Government Relations Analyst: : 1945 Requested By: Jesus Hernandez Order Number: [id number] Reading MD: Tawanda Flor M.D. Measurements Intervals [place] Rate: 145 P: AR: QRS: -31 QRSD: 84 T: 146 QT: 300 QTc: 466 Interpretive Statements JUNCTIONAL TACHYCARDIA LAD, CONSIDER LEFT ANTERIOR FASCICULAR BLOCK REPOLARIZATION ABNORMALITY, PROB RATE RELATED SINCE 02-03-2021, INCREASED RATE Electronically Signed On 02-04-2021 14:15:00 PDT by Tawanda Flor M.D. /store/M0/[id number]/[id number]
[2021-02-04 16:20] LABS: POC Blood Urea Nitrogen 59 mg/dL (6-20); POC CO2 28 mmol/L (22-30); POC Chloride 113 mEq/L (96-108); POC Creatinine 1.2 mg/dL (0.6-1.2); POC Glucose, Random 129 mg/dL (70-105); POC Hematocrit 34 % (36-48); POC Potassium 3.8 mEql/L (3.3-5.1); POC Sodium 145 mEq/L (133-145)
[2021-02-04] MEDS ORDERED: DEXTROSE 5%-1/2NS 1,000 ML IV SCH (17:00)
[2021-02-04 20:06] LABS: POC Blood Urea Nitrogen 60 mg/dL (6-20); POC CO2 27 mmol/L (22-30); POC Calcium, Ionized 0.94 mmEq/L (1.16-1.32); POC Chloride 110 mEq/L (96-108); POC Creatinine 1.2 mg/dL (0.6-1.2); POC Glucose, Random 115 mg/dL (70-105); POC Hematocrit 32 % (36-48); POC Potassium 3.7 mEql/L (3.3-5.1); POC Sodium 142 mEq/L (133-145)
[2021-02-04] MEDS ORDERED: 0.9 % SODIUM CHLORIDE 1,000 ML IV SCH (21:15)
[2021-02-05] MEDS ORDERED: DILTIAZEM 125 MG/25 ML VIAL IV ONE (04:56)
[2021-02-05] MEDS: DILTIAZEM 125 MG in DEXTROSE 5% IN WATER 100 ML IV PRN (05:09)
[2021-02-05] MEDS ORDERED: 0.9 % SODIUM CHLORIDE 250 ML IV SCH (05:15)
[2021-02-05] MEDS: 0.9 % SODIUM CHLORIDE 10 ML SYRINGE IV SCH ×3 (05:55→20:15)
[2021-02-05 06:38] LABS: Basophils # (Auto) 0.04 K/mcL (0.00-0.20); Basophils % (Auto) 0.4 % (0.0-2.0); Eosinophils # (Auto) 0.24 K/mcL (0.00-0.70); Eosinophils % (Auto) 2.5 % (0.0-7.0); Hematocrit 37.7 % (36.0-48.0); Hemoglobin 11.6 g/dL (12.0-15.0); Lymphocytes # (Auto) 1.08 K/mcL (1.50-4.80); Lymphocytes % (Auto) 11.2 % (15.0-49.0); Mean Corpuscular HGB Conc 30.8 g/dL (31.0-36.0); Mean Platelet Volume 9.4 fL (7.4-10.4); Monocytes # (Auto) 0.58 K/mcL (0.10-0.90); Neutrophils % (Auto) 79.9 % (38.0-78.0); Platelet Count 241 K/mcL (140-440); Red Cell Distribution Width 16.1 % (11.5-14.5); WBC 9.7 K/mcL (4.5-11.0)
[2021-02-05 07:01] LABS: ALT/SGPT 6 U/L (<40); AST/SGOT 13 U/L (<32); Albumin 2.8 gm/dL (3.2-5.2); Albumin/Globulin Ratio 0.9 (1.0-2.3); Alkaline Phosphatase 100 U/L (39-117); Bilirubin,Direct < 0.2 mg/dL (0-0.3); Bilirubin,Total 0.3 mg/dL (0.1-1.0); Blood Urea Nitrogen 37 mg/dL (8-23); Calcium 8.7 mg/dL (8.6-10.4); Carbon Dioxide 24 mmol/L (22-30); Chloride 110 mmol/L (96-108); Glomerular Filtration Rate 63; Glucose 82 mg/dL (70-105); Lactate Dehydrogenase 193 U/L (135-225); Phosphorous 2.6 mg/dL (2.5-4.5); Triglycerides 225 mg/dL (<150); Uric Acid 7.6 mg/dL (2.5-8.0)
[2021-02-05] MEDS: DILTIAZEM 30 MG TABLET PO SCH ×5 (07:38→20:15)
[2021-02-05] MEDS: SERTRALINE 50 MG TABLET PO SCH (07:38)
[2021-02-05] MEDS: ALPRAZolam 0.25 MG TABLET PO SCH (07:38)
[2021-02-05] MEDS: ENOXAPARIN 40 MG/0.4 ML SYRINGE SQ SCH (07:39)
[2021-02-05] MEDS: POLYETHYLENE GLYCOL 3350 17 GM PACKET PO SCH ×2 (07:39→08:54)
[2021-02-05] MEDS: DOCUSATE SODIUM 100 MG CAPSULE PO SCH ×3 (07:39→20:15)
[2021-02-05] MEDS: cefTRIAXone 1 GM VIAL IV SCH (07:43)
--- NOTE | 2021-02-05 08:03 | Internal Med Progress Note ---
SUBJECTIVE Subjective Patient information: Note initiated : 02/05/21 at 7:58 am Service Date, if different from initiated Date: [] Patient: Billie Mojica a 75 y/o F admitted on 02/03/21 for Confusion Hypernatremia. Chief Complaint: [] Interval history: History of present illness: Ms. Mojica is a 75 year old F Patient sent into the primary care provider by the nursing facility because she is had confusion for the past couple weeks. He had lab work done at Dr. Tirado[facility] and found have a sodium of 154 and there was also concern for urinary tract infection so patient was sent to the hospital. Patient had an identical ED visit in November for the same reason with the same findings. However, she was a DNR/comfort care data's and so this was discussed with family member and patient was transitioned back to the nursing facility for comfort care measures. She is admitted this time at the request to treat UTI and correct electrolytes to see if her mentation improves because we do not have a power of claim attorney and guardianship has not been established. Is clear the end of life goals and plan need to be addressed. CT brain done last admit was unremarkable. Urinalysis consistent with infection. Patient is a poor historian. And answer some simple review of systems question but does not know why she is here. Patient went into SVT was aborted with adenosine and then went into it later. 02/04 Patient had a few runs of SVT overnight aborted with as needed IV Lopressor. 02/05 Patient had diarrhea yesterday and this morning. C. difficile negative. Urine with gram-negative bacillus. Unable to gather review of systems as she seems to mumble sometimes mild understand her I think it is for a lack of teeth Constitutional Vitals: Vital Signs Temp Pulse Resp BP Pulse Ox 98.1 F 84 13 93/61 95 02/05/21 04:01 02/05/21 06:03 02/05/21 06:03 02/05/21 06:01 02/05/21 06:03 Period Temp Pulse Resp BP Sys/Montesinos Pulse Ox Last 24 Hr 97.7 F-98.5 F 63-146 8-19 72-107/48-75 92-100 Intake and Output 02/04/21 02/05/21 02/05/21 21:59 05:59 13:59 Intake Total 999 9 1 Output Total 975 475 Balance 24 -466 1 Weight 57.47 kg Intake & Output: Intake & Output 02/04/21 02/05/21 02/05/21 21:59 05:59 13:59 Intake Total 999 9 1 Output Total 975 475 Balance 24 -466 1 Weight 57.47 kg Intake: IV 999 9 1 Dextrose 5% in Water 1,000 ml @ 581 125 mls/hr IV .Q8H [facility] Rx#: [id number] Dextrose 5%-1/2Ns IV Solution 1 418 ,000 ml @ 100 mls/hr IV .Q10H [facility] Rx#:[id number] Cardizem 125 mg In Dextrose 5% 9 1 in Water 100 ml @ 5 MG/HR 5 mls /hr IV Q12HP PRN Rx#:[id number] Output: Urine Catheter Amount 975 475 Other: Urine Appearance Clear Clear Uretheral (Velez) Clear Clear Urine Color Bright Yellow Bright Yellow Uretheral (Velez) Dark Yellow Bright Yellow Stool Size Small Small Stool Color Brown Brown Stool Consistency Liquid Liquid # Bowel Movements 2 # of times incontinent of 1 1 Bowels Exam: General: Awake, No acute Distress Eyes/N/T: EOMI, Head/Neck: neck supple, CV: RRR, No murmurs, Pulm: Clear b/l, no wheezing/rhonchi/rales Abd: soft, nontender, +BS x4 Ext: no clubbing/cyanosis/edema Neuro: Awake, ,Follows commands and moves all extremities skin: warm/dry OBJ DATA Labs CBC & Chem 7: 02/05/21 05:18 02/05/21 05:18 Labs: Abnormal Lab Results 02/05/21 02/05/21 02/04/21 05:18 05:18 20:00 WBC Hgb 11.6 L POC Hct 32 L MCHC 30.8 L RDW 16.1 H Neut % (Auto) 79.9 H Lymph % (Auto) 11.2 L Lymph # (Auto) 1.08 L [place] # (Auto) Absolute Neutrophils POC Sodium Sodium POC Potassium Potassium 3.2 L POC Chloride 110 H Chloride 110 H Carbon Dioxide POC Total CO2 POC BUN 60 H BUN 37 H Creatinine POC Creatinine Glucose POC Glucose 115 H Uric Acid Calcium POC WB Ioniz Calcium 0.94 L Magnesium Alkaline Phosphatase Lactate Dehydrogenase Total Protein 5.8 L Albumin 2.8 L Albumin/Globulin Ratio 0.9 L Triglycerides 225 H Urine Appearance Ur Leukocyte Esterase Urine WBC Urine Bacteria Hyaline Casts 02/04/21 02/04/21 02/04/21 16:10 12:50 09:14 WBC Hgb POC Hct 34 L 33 L MCHC RDW Neut % (Auto) Lymph % (Auto) Lymph # (Auto) [place] # (Auto) Absolute Neutrophils POC Sodium 148 H 151 H Sodium POC Potassium Potassium POC Chloride 113 H 111 H Chloride Carbon Dioxide POC Total CO2 POC BUN 59 H 54 H 61 H BUN Creatinine POC Creatinine 1.3 H 1.5 H Glucose POC Glucose 129 H 144 H Uric Acid Calcium POC WB Ioniz Calcium 1.14 L Magnesium Alkaline Phosphatase Lactate Dehydrogenase Total Protein Albumin Albumin/Globulin Ratio Triglycerides Urine Appearance Ur Leukocyte Esterase Urine WBC Urine Bacteria Hyaline Casts 02/04/21 02/04/21 02/04/21 04:12 04:12 04:12 WBC 14.6 H Hgb POC Hct 31 L MCHC RDW 16.0 H Neut % (Auto) 85.4 H Lymph % (Auto) 7.9 L Lymph # (Auto) 1.15 L [place] # (Auto) Absolute Neutrophils 12.48 H POC Sodium 149 H Sodium 150 H POC Potassium 2.9 L* Potassium POC Chloride 112 H Chloride 111 H Carbon Dioxide POC Total CO2 POC BUN 62 H BUN 68 H Creatinine 1.2 H POC Creatinine 1.4 H Glucose 111 H POC Glucose 129 H Uric Acid 10.4 H Calcium 8.3 L POC WB Ioniz Calcium 0.97 L Magnesium 2.6 H Alkaline Phosphatase Lactate Dehydrogenase 275 H Total Protein 5.7 L Albumin 2.9 L Albumin/Globulin Ratio Triglycerides 175 H Urine Appearance Ur Leukocyte Esterase Urine WBC Urine Bacteria Hyaline Casts 02/04/21 02/03/21 02/03/21 00:32 17:19 16:47 WBC Hgb POC Hct 29 L MCHC RDW Neut % (Auto) Lymph % (Auto) Lymph # (Auto) [place] # (Auto) Absolute Neutrophils POC Sodium 152 H Sodium POC Potassium Potassium POC Chloride 115 H Chloride Carbon Dioxide POC Total CO2 33 H POC BUN 89 H BUN Creatinine POC Creatinine 1.5 H Glucose POC Glucose 144 H Uric Acid Calcium POC WB Ioniz Calcium 0.98 L Magnesium 3.0 H Alkaline Phosphatase Lactate Dehydrogenase Total Protein Albumin Albumin/Globulin Ratio Triglycerides Urine Appearance Hazy A Ur Leukocyte Esterase 75 A Urine WBC 5 H Urine Bacteria Mod A Hyaline Casts 46 H 02/03/21 02/03/21 16:47 16:47 WBC 15.5 H Hgb POC Hct MCHC RDW 16.1 H Neut % (Auto) 85.2 H Lymph % (Auto) 6.7 L Lymph # (Auto) 1.04 L [place] # (Auto) 1.12 H Absolute Neutrophils 13.20 H POC Sodium Sodium 153 H POC Potassium Potassium 3.1 L POC Chloride Chloride Carbon Dioxide 31 H POC Total CO2 POC BUN BUN 90 H Creatinine 1.7 H POC Creatinine Glucose 117 H POC Glucose Uric Acid Calcium POC WB Ioniz Calcium Magnesium Alkaline Phosphatase 136 H Lactate Dehydrogenase Total Protein Albumin Albumin/Globulin Ratio Triglycerides Urine Appearance Ur Leukocyte Esterase Urine WBC Urine Bacteria Hyaline Casts Meds: Medications Acetaminophen (Acetaminophen 325 Mg Tablet) 650 mg PO Q6HP PRN PRN Reason: PAIN/FEVER > 101 Albuterol/Ipratropium (Ipratropium/Albuterol 3 Ml Ampul.Neb) 3 ml NEB Q4HP PRN PRN Reason: Shortness Of Breath Alprazolam (Alprazolam 0.25 Mg Tablet) 0.25 mg PO TID [facility] Last Admin: 02/05/21 07:38 Dose: 0.25 mg Documented by: Ceftriaxone Sodium (Ceftriaxone 1 Gm Vial) 1 gm IV Q24H [facility] Last Admin: 02/05/21 07:43 Dose: 1 gm Documented by: Diltiazem HCl (Diltiazem 30 Mg Tablet) 30 mg PO TID [facility] Last Admin: 02/05/21 07:38 Dose: 30 mg Documented by: Docusate Sodium (Docusate Sodium 100 Mg Capsule) 100 mg PO BID [facility] Last Admin: 02/05/21 07:39 Dose: 100 mg Documented by: Enoxaparin Sodium (Enoxaparin 40 Mg/0.4 Ml Syringe) 40 mg SQ DAILY [facility] Last Admin: 02/05/21 07:39 Dose: 40 mg Documented by: Potassium Chloride 40 meq/ (Dextrose) 520 mls @ 130 mls/hr IV UD PRN PRN Reason: Potassium < 3 Last Infusion: 02/04/21 09:45 Dose: Infused Documented by: Magnesium Sulfate (Magnesium Sulfate) 2 gm in 50 mls @ 50 mls/hr IV UD PRN PRN Reason: Magnesium </= 1.6 Diltiazem HCl 125 mg/ Dextrose 125 mls @ 5 mls/hr IV Q12HP PRN; Protocol PRN Reason: Tachyarrhythmias Last Titration: 02/05/21 06:00 Dose: 5 mg/hr, 5 mls/hr Documented by: Sodium Chloride (Sodium Chloride 0.9%) 1,000 mls @ 70 mls/hr IV .[id number] [facility] Last Admin: 02/04/21 21:11 Dose: 70 mls/hr Documented by: Sodium Chloride (Sodium Chloride 0.9%) 250 mls @ 20 mls/hr IV .[id number] [facility] Last Admin: 02/05/21 05:08 Dose: 20 mls/hr Documented by: Lorazepam (Lorazepam 0.5 Mg Tablet) 0.5 mg PO BIDP PRN PRN Reason: Agitation Metoprolol Tartrate (Metoprolol Tartrate 5 Mg/5 Ml Vial) 5 mg IV Q2HP PRN PRN Reason: Tachyarrhythmias HR>110 Last Admin: 02/04/21 12:15 Dose: 5 mg Documented by: Ondansetron HCl (Ondansetron 4 Mg/2 Ml Vial) 4 mg IV Q4HP PRN PRN Reason: Nausea And Vomiting Polyethylene Glycol (Polyethylene Glycol 3350 17 Gm Packet) 17 gm PO DAILY [facility] Last Admin: 02/05/21 07:39 Dose: 17 gm Documented by: Potassium Chloride (Potassium Chloride 20 Meq Tablet) 40 meq PO UD PRN PRN Reason: Potssium is 3-3.5 Last Admin: 02/04/21 00:37 Dose: 40 meq Documented by: Potassium Chloride (Potassium Chloride 20 Meq Tablet) 40 meq PO UD PRN PRN Reason: Potassium < 3 Last Admin: 02/04/21 04:40 Dose: 40 meq Documented by: Senna (Sennosides 1 Tablet) 2 tab PO DAILYP PRN PRN Reason: Constipation Sertraline HCl (Sertraline 50 Mg Tablet) 50 mg PO DAILY [facility] Last Admin: 02/05/21 07:38 Dose: 50 mg Documented by: Sodium Chloride (0.9 % Sodium Chloride 10 Ml Syringe) 10 ml IV Q8 [facility] Last Admin: 02/05/21 05:55 Dose: Not Given Documented by: Trazodone HCl (Trazodone Hcl 50 Mg Tablet) 50 mg PO QHS [facility] Last Admin: 02/04/21 20:29 Dose: 50 mg Documented by: A/P Narrative A/P Narrative: A: *Encephalopathy, metabolic: 2/2 electrolyte abnormalities and UTI -CT brain *Hypernatremia: 2/2 poor oral intake, resolved *SVT: has had several episodes while here -also went into SVT during the November ED visit *chronically low BP, baseline: *UTI(GNB): *ADA on CKD: improved *Hypokalemia: *HTN: on diltiazem *Depression/anxiety: *goals of care: P: -IVF -home diltiazem, prn IV lopressor (she has gotten several rounds of adenosine as well as verpamil and dilt gtt - each working temporarily), will try cardioversion next time -Rocephin, pending UC -Hold home furosemide/metolazone/?on aldactone -Continue depression medication -echo -PT OT -ppx: Lovenox DNR Time Spent With Patient Time: Total time spent is greater than 50% in coordination of care (as documented) at patient's floor/unit and/or counseling patient: QUALITY VTE Deep Vein Thrombosis/Pulmonary Embolism Present on Admission: No
[2021-02-05] MEDS: DEXTROSE 5%-1/2NS W/10MEQ KCL 1,000 ML IV SCH (09:42)
--- NOTE | 2021-02-05 10:16 | Cat Scan Report ---
INDICATION: encephalopathy COMPARISON: Previous examination dated 11/24/2020 TECHNIQUE: Axial noncontrast-enhanced images through the brain. Sagittally and coronally reformatted images. FINDINGS: Cerebral hemispheres:Negative. No intra-axial abnormality. No intra-axial hematoma. No localized mass effect. There is cerebral atrophy with prominent superficial subarachnoid spaces and ventricles. This is considered to be within normal limits and unchanged. Brainstem and cerebellum:No intra-axial abnormality Extra-axial:No acute hemorrhage. No subdural or epidural hematoma. No subarachnoid hemorrhage. Basilar cisterns are normal Calvarial:No calvarial fracture. No lytic lesion Temporal bones are negative. No destructive lesions Soft tissue, orbits, sinuses:Orbits and visualized facial soft tissues and paranasal sinuses are negative IMPRESSION: 1. No acute or focal abnormality 2. No interval change since 11/24/2020 The exam was performed using radiation dose optimization techniques including, but not limited to, automated exposure control, adjustment of the mA and/or kV according to patient size and use of iterative reconstruction technique. Interpreted and Authenticated by: René Morrissey 02/05/21
[2021-02-05] MEDS ORDERED: fentaNYL 100 MCG/2 ML VIAL IV ONE (13:44)
[2021-02-05 14:21] LABS: POC Blood Urea Nitrogen 29 mg/dL (6-20); POC CO2 26 mmol/L (22-30); POC Calcium, Ionized 1.06 mmEq/L (1.16-1.32); POC Chloride 108 mEq/L (96-108); POC Creatinine 0.8 mg/dL (0.6-1.2); POC Glucose, Random 94 mg/dL (70-105); POC Hematocrit 36 % (36-48); POC Potassium 2.8 mEql/L (3.3-5.1); POC Sodium 144 mEq/L (133-145)
[2021-02-05] MEDS: POTASSIUM CHLORIDE 40 MEQ in DEXTROSE 5% IN WATER 500 ML IV PRN (14:37)
[2021-02-05] MEDS: LOPERAMIDE 2 MG CAPSULE PO PRN ×2 (17:34→20:15)
[2021-02-05] MEDS ORDERED: POTASSIUM CHLORIDE 20 MEQ in DEXTROSE 5% IN WATER 250 ML IV ONE (19:00)
[2021-02-05] MEDS: traZODone HCL 50 MG TABLET PO SCH (20:14)
[2021-02-05] MEDS: 0.9 % SODIUM CHLORIDE 250 ML IV SCH (22:05)
[2021-02-06] MEDS ORDERED: DILTIAZEM 125 MG/25 ML VIAL IV ONE (04:04)
[2021-02-06] MEDS: DILTIAZEM 125 MG in DEXTROSE 5% IN WATER 100 ML IV PRN (04:21)
[2021-02-06] MEDS: 0.9 % SODIUM CHLORIDE 10 ML SYRINGE IV SCH ×3 (05:37→21:14)
[2021-02-06 07:03] LABS: ALT/SGPT 38 U/L (<40); AST/SGOT 58 U/L (<32); Albumin 2.7 gm/dL (3.2-5.2); Albumin/Globulin Ratio 0.9 (1.0-2.3); Alkaline Phosphatase 110 U/L (39-117); Bilirubin,Direct 0.3 mg/dL (<0.3); Bilirubin,Total 0.7 mg/dL (0.1-1.0); Blood Urea Nitrogen 18 mg/dL (8-23); Calcium 8.5 mg/dL (8.6-10.4); Carbon Dioxide 23 mmol/L (22-30); Chloride 109 mmol/L (96-108); Globulin 2.9 gm/dL (2.2-3.7); Glomerular Filtration Rate 73; Glucose 100 mg/dL (70-105); Lactate Dehydrogenase 247 U/L (135-225); Phosphorous 2.3 mg/dL (2.5-4.5); Triglycerides 189 mg/dL (<150); Uric Acid 6.2 mg/dL (2.5-8.0)
[2021-02-06] MEDS: DOCUSATE SODIUM 100 MG CAPSULE PO SCH ×2 (07:23→21:14)
[2021-02-06] MEDS: POLYETHYLENE GLYCOL 3350 17 GM PACKET PO SCH (07:23)
[2021-02-06] MEDS: cefTRIAXone 1 GM VIAL IV SCH (07:37)
[2021-02-06] MEDS: ENOXAPARIN 40 MG/0.4 ML SYRINGE SQ SCH (07:37)
[2021-02-06] MEDS: SERTRALINE 50 MG TABLET PO SCH (07:38)
[2021-02-06] MEDS: DILTIAZEM 30 MG TABLET PO SCH ×4 (07:38→21:14)
[2021-02-06] MEDS: DEXTROSE 5%-1/2NS W/10MEQ KCL 1,000 ML IV SCH (07:39)
--- NOTE | 2021-02-06 07:59 | Internal Med Progress Note ---
SUBJECTIVE Subjective Patient information: Note initiated : 02/06/21 at 7:53 am Service Date, if different from initiated Date: [] Patient: Billie Mojica a 75 y/o F admitted on 02/03/21 for Confusion Hypernatremia. Chief Complaint: [] Interval history: History of present illness: Ms. Mojica is a 75 year old F Patient sent into the primary care provider by the nursing facility because she is had confusion for the past couple weeks. He had lab work done at Dr. Tirado[facility] and found have a sodium of 154 and there was also concern for urinary tract infection so patient was sent to the hospital. Patient had an identical ED visit in November for the same reason with the same findings. However, she was a DNR/comfort care data's and so this was discussed with family member and patient was transitioned back to the nursing facility for comfort care measures. She is admitted this time at the request to treat UTI and correct electrolytes to see if her mentation improves because we do not have a power of admitted attorneys and guardianship has not been established. Is clear the end of life goals and plan need to be addressed. CT brain done last admit was unremarkable. Urinalysis consistent with infection. Patient is a poor historian. And answer some simple review of systems question but does not know why she is here. Patient went into SVT was aborted with adenosine and then went into it later. 02/04 Patient had a few runs of SVT overnight aborted with as needed IV Lopressor. 02/05 Patient had diarrhea yesterday and this morning. C. difficile negative. Urine with gram-negative bacillus. 02/06 Patient seems to be doing better today. Mentation more clear and speech more clear. Diltiazem drip placed last night for SVT. Will DC this morning Review of Systems: denies headache/fever/chills/nausea/vomiting/chest or abdominal pain/cough/dyspn ea/diarrhea. Otherwise see above. Constitutional Vitals: Vital Signs Temp Pulse Resp BP Pulse Ox 98.4 F 90 10 L 102/62 95 02/06/21 04:00 02/05/21 14:00 02/06/21 06:47 02/06/21 06:10 02/06/21 06:47 Period Temp Pulse Resp BP Sys/Montesinos Pulse Ox Last 24 Hr 98.4 F-99.0 F 81-155 8-23 80-115/44-80 82-100 Intake and Output 02/05/21 02/06/21 02/06/21 21:59 05:59 13:59 Intake Total 800 844 9 Output Total 125 500 Balance 675 344 9 Weight 57.198 kg Intake & Output: Intake & Output 02/05/21 02/06/21 02/06/21 21:59 05:59 13:59 Intake Total 800 844 9 Output Total 125 500 Balance 675 344 9 Weight 57.198 kg Intake: IV 800 844 9 Dextrose 5%-1/2Ns W/10Meq KCl 1 802 ,000 ml @ 65 mls/hr IV .[id number] [facility] Rx#:[id number] Cardizem 125 mg In Dextrose 5% 20 42 9 in Water 100 ml @ 5 MG/HR 5 mls /hr IV Q12HP PRN Rx#:[id number] Potassium Chloride 20 Meq In 260 Dextrose 5% in Water 250 ml @ 130 mls/hr IV ONCE ONE Rx#: [id number] Potassium Chloride 40 Meq In 520 Dextrose 5% in Water 500 ml @ 130 mls/hr IV UD PRN Rx#: [id number] Output: Urine Catheter Amount 125 450 Stool 50 Other: Urine Appearance Clear Clear Urine Color Bright Yellow Bright Yellow Stool Color Brown Brown Stool Consistency Liquid Liquid # Bowel Movements 1 # of times incontinent of 1 1 Bowels Exam: General: Awake, No acute Distress Eyes/N/T: EOMI, Head/Neck: neck supple, CV: RRR, No murmurs, Pulm: Clear b/l, no wheezing/rhonchi/rales Abd: soft, nontender, +BS x4 Ext: no clubbing/cyanosis/edema Neuro: Awake, ,Follows commands and moves all extremities, speech clear today, she knows she is at [place] skin: warm/dry OBJ DATA Labs CBC & Chem 7: 02/05/21 05:18 02/06/21 05:14 Labs: Abnormal Lab Results 02/06/21 02/05/21 02/05/21 05:14 14:00 05:18 WBC Hgb POC Hct MCHC RDW Neut % (Auto) Lymph % (Auto) Lymph # (Auto) [place] # (Auto) Absolute Neutrophils POC Sodium Sodium POC Potassium 2.8 L* Potassium 3.2 L POC Chloride Chloride 109 H 110 H Carbon Dioxide POC Total CO2 POC BUN 29 H BUN 37 H Creatinine POC Creatinine Glucose POC Glucose Uric Acid Calcium 8.5 L POC WB Ioniz Calcium 1.06 L Phosphorus 2.3 L Magnesium Direct Bilirubin 0.3 H AST 58 H Alkaline Phosphatase Lactate Dehydrogenase 247 H Total Protein 5.6 L 5.8 L Albumin 2.7 L 2.8 L Albumin/Globulin Ratio 0.9 L 0.9 L Triglycerides 189 H 225 H Urine Appearance Ur Leukocyte Esterase Urine WBC Urine Bacteria Hyaline Casts 02/05/21 02/04/21 02/04/21 05:18 20:00 16:10 WBC Hgb 11.6 L POC Hct 32 L 34 L MCHC 30.8 L RDW 16.1 H Neut % (Auto) 79.9 H Lymph % (Auto) 11.2 L Lymph # (Auto) 1.08 L [place] # (Auto) Absolute Neutrophils POC Sodium Sodium POC Potassium Potassium POC Chloride 110 H 113 H Chloride Carbon Dioxide POC Total CO2 POC BUN 60 H 59 H BUN Creatinine POC Creatinine Glucose POC Glucose 115 H 129 H Uric Acid Calcium POC WB Ioniz Calcium 0.94 L Phosphorus Magnesium Direct Bilirubin AST Alkaline Phosphatase Lactate Dehydrogenase Total Protein Albumin Albumin/Globulin Ratio Triglycerides Urine Appearance Ur Leukocyte Esterase Urine WBC Urine Bacteria Hyaline Casts 02/04/21 02/04/21 02/04/21 12:50 09:14 04:12 WBC Hgb POC Hct 33 L MCHC RDW Neut % (Auto) Lymph % (Auto) Lymph # (Auto) [place] # (Auto) Absolute Neutrophils POC Sodium 148 H 151 H Sodium 150 H POC Potassium Potassium POC Chloride 111 H Chloride 111 H Carbon Dioxide POC Total CO2 POC BUN 54 H 61 H BUN 68 H Creatinine 1.2 H POC Creatinine 1.3 H 1.5 H Glucose 111 H POC Glucose 144 H Uric Acid 10.4 H Calcium 8.3 L POC WB Ioniz Calcium 1.14 L Phosphorus Magnesium 2.6 H Direct Bilirubin AST Alkaline Phosphatase Lactate Dehydrogenase 275 H Total Protein 5.7 L Albumin 2.9 L Albumin/Globulin Ratio Triglycerides 175 H Urine Appearance Ur Leukocyte Esterase Urine WBC Urine Bacteria Hyaline Casts 02/04/21 02/04/21 02/04/21 04:12 04:12 00:32 WBC 14.6 H Hgb POC Hct 31 L 29 L MCHC RDW 16.0 H Neut % (Auto) 85.4 H Lymph % (Auto) 7.9 L Lymph # (Auto) 1.15 L [place] # (Auto) Absolute Neutrophils 12.48 H POC Sodium 149 H 152 H Sodium POC Potassium 2.9 L* Potassium POC Chloride 112 H 115 H Chloride Carbon Dioxide POC Total CO2 33 H POC BUN 62 H 89 H BUN Creatinine POC Creatinine 1.4 H 1.5 H Glucose POC Glucose 129 H 144 H Uric Acid Calcium POC WB Ioniz Calcium 0.97 L 0.98 L Phosphorus Magnesium Direct Bilirubin AST Alkaline Phosphatase Lactate Dehydrogenase Total Protein Albumin Albumin/Globulin Ratio Triglycerides Urine Appearance Ur Leukocyte Esterase Urine WBC Urine Bacteria Hyaline Casts 02/03/21 02/03/21 02/03/21 17:19 16:47 16:47 WBC Hgb POC Hct MCHC RDW Neut % (Auto) Lymph % (Auto) Lymph # (Auto) [place] # (Auto) Absolute Neutrophils POC Sodium Sodium 153 H POC Potassium Potassium 3.1 L POC Chloride Chloride Carbon Dioxide 31 H POC Total CO2 POC BUN BUN 90 H Creatinine 1.7 H POC Creatinine Glucose 117 H POC Glucose Uric Acid Calcium POC WB Ioniz Calcium Phosphorus Magnesium 3.0 H Direct Bilirubin AST Alkaline Phosphatase 136 H Lactate Dehydrogenase Total Protein Albumin Albumin/Globulin Ratio Triglycerides Urine Appearance Hazy A Ur Leukocyte Esterase 75 A Urine WBC 5 H Urine Bacteria Mod A Hyaline Casts 46 H 02/03/21 16:47 WBC 15.5 H Hgb POC Hct MCHC RDW 16.1 H Neut % (Auto) 85.2 H Lymph % (Auto) 6.7 L Lymph # (Auto) 1.04 L [place] # (Auto) 1.12 H Absolute Neutrophils 13.20 H POC Sodium Sodium POC Potassium Potassium POC Chloride Chloride Carbon Dioxide POC Total CO2 POC BUN BUN Creatinine POC Creatinine Glucose POC Glucose Uric Acid Calcium POC WB Ioniz Calcium Phosphorus Magnesium Direct Bilirubin AST Alkaline Phosphatase Lactate Dehydrogenase Total Protein Albumin Albumin/Globulin Ratio Triglycerides Urine Appearance Ur Leukocyte Esterase Urine WBC Urine Bacteria Hyaline Casts Meds: Medications Acetaminophen (Acetaminophen 325 Mg Tablet) 650 mg PO Q6HP PRN PRN Reason: PAIN/FEVER > 101 Albuterol/Ipratropium (Ipratropium/Albuterol 3 Ml Ampul.Neb) 3 ml NEB Q4HP PRN PRN Reason: Shortness Of Breath Alprazolam (Alprazolam 0.25 Mg Tablet) 0.25 mg PO TIDP PRN PRN Reason: Agitation Ceftriaxone Sodium (Ceftriaxone 1 Gm Vial) 1 gm IV Q24H [facility] Last Admin: 02/06/21 07:37 Dose: 1 gm Documented by: Diltiazem HCl (Diltiazem 30 Mg Tablet) 30 mg PO QID [facility] Last Admin: 02/06/21 07:38 Dose: 30 mg Documented by: Docusate Sodium (Docusate Sodium 100 Mg Capsule) 100 mg PO BID [facility] Last Admin: 02/06/21 07:23 Dose: Not Given Documented by: Enoxaparin Sodium (Enoxaparin 40 Mg/0.4 Ml Syringe) 40 mg SQ DAILY [facility] Last Admin: 02/06/21 07:37 Dose: 40 mg Documented by: Potassium Chloride 40 meq/ (Dextrose) 520 mls @ 130 mls/hr IV UD PRN PRN Reason: Potassium < 3 Last Infusion: 02/05/21 19:21 Dose: Infused Documented by: Magnesium Sulfate (Magnesium Sulfate) 2 gm in 50 mls @ 50 mls/hr IV UD PRN PRN Reason: Magnesium </= 1.6 Diltiazem HCl 125 mg/ Dextrose 125 mls @ 5 mls/hr IV Q12HP PRN; Protocol PRN Reason: Tachyarrhythmias Last Titration: 02/06/21 06:02 Dose: 10 mg/hr, 10 mls/hr Documented by: Potassium Chloride/Dextrose/Sod Cl (Dextrose 5%-1/2ns W/10meq Kcl) 1,000 mls @ 65 mls/hr IV .[id number] [facility] Last Admin: 02/06/21 07:39 Dose: Not Given Documented by: Sodium Chloride (Sodium Chloride 0.9%) 250 mls @ 20 mls/hr IV .[id number] [facility] Last Admin: 02/05/21 22:05 Dose: 20 mls/hr Documented by: Loperamide HCl (Loperamide 2 Mg Capsule) 2 mg PO PRN PRN PRN Reason: Diarrhea Last Admin: 02/05/21 20:15 Dose: 2 mg Documented by: Metoprolol Tartrate (Metoprolol Tartrate 5 Mg/5 Ml Vial) 5 mg IV Q2HP PRN PRN Reason: Tachyarrhythmias HR>110 Last Admin: 02/04/21 12:15 Dose: 5 mg Documented by: Ondansetron HCl (Ondansetron 4 Mg/2 Ml Vial) 4 mg IV Q4HP PRN PRN Reason: Nausea And Vomiting Polyethylene Glycol (Polyethylene Glycol 3350 17 Gm Packet) 17 gm PO DAILY [facility] Last Admin: 02/06/21 07:23 Dose: Not Given Documented by: Potassium Chloride (Potassium Chloride 20 Meq Tablet) 40 meq PO UD PRN PRN Reason: Potssium is 3-3.5 Last Admin: 02/04/21 00:37 Dose: 40 meq Documented by: Potassium Chloride (Potassium Chloride 20 Meq Tablet) 40 meq PO UD PRN PRN Reason: Potassium < 3 Last Admin: 02/04/21 04:40 Dose: 40 meq Documented by: Senna (Sennosides 1 Tablet) 2 tab PO DAILYP PRN PRN Reason: Constipation Sertraline HCl (Sertraline 50 Mg Tablet) 50 mg PO DAILY [facility] Last Admin: 02/06/21 07:38 Dose: 50 mg Documented by: Sodium Chloride (0.9 % Sodium Chloride 10 Ml Syringe) 10 ml IV Q8 [facility] Last Admin: 02/06/21 05:37 Dose: Not Given Documented by: Trazodone HCl (Trazodone Hcl 50 Mg Tablet) 50 mg PO QHS [facility] Last Admin: 02/05/21 20:14 Dose: 50 mg Documented by: A/P Narrative A/P Narrative: A: *Encephalopathy, metabolic: 2/2 electrolyte abnormalities and UTI -CT brain prominent atrophy but no acute process -Improving, *Hypernatremia: 2/2 poor oral intake, Resolved *Hypokalemia: resolved *SVT: has had multiple episodes while here -also went into SVT during the November ED visit *chronically low BP, baseline: *UTI(E. coli): *ADA on CKD: improved *Hypokalemia: *HTN: on diltiazem *Depression/anxiety: *Analyzed weakness/deconditioning: *goals of care: *Diarrhea: c.diff neg, improving P: -IVF stop today -home diltiazem(increased to qid), prn IV lopressor (she has gotten several rounds of adenosine as well as verpamil and dilt gtt) -Rocephin -Hold home furosemide/metolazone/?on aldactone -Continue depression medication -echo -PT OT -ppx: Lovenox DNR Time Spent With Patient Time: Total time spent is greater than 50% in coordination of care (as documented) at patient's floor/unit and/or counseling patient: QUALITY VTE Deep Vein Thrombosis/Pulmonary Embolism Present on Admission: No
[2021-02-06] MEDS: 0.9 % SODIUM CHLORIDE 250 ML IV SCH ×2 (12:39→20:36)
[2021-02-06] MEDS: LOPERAMIDE 2 MG CAPSULE PO PRN ×2 (13:58→21:14)
[2021-02-06] MEDS: ALPRAZolam 0.25 MG TABLET PO PRN ×2 (14:52→21:14)
[2021-02-06] MEDS: traZODone HCL 50 MG TABLET PO SCH (21:14)
[2021-02-07] MEDS: ALPRAZolam 0.25 MG TABLET PO PRN ×3 (01:01→13:10)
[2021-02-07] MEDS: 0.9 % SODIUM CHLORIDE 10 ML SYRINGE IV SCH ×3 (06:36→20:16)
[2021-02-07 06:38] LABS: Basophils # (Auto) 0.05 K/mcL (0.00-0.20); Basophils % (Auto) 0.5 % (0.0-2.0); Eosinophils # (Auto) 0.23 K/mcL (0.00-0.70); Eosinophils % (Auto) 2.5 % (0.0-7.0); Hematocrit 37.5 % (36.0-48.0); Hemoglobin 11.7 g/dL (12.0-15.0); Lymphocytes # (Auto) 0.74 K/mcL (1.50-4.80); Mean Cell Volume 90.6 fL (80.0-100.0); Mean Corpuscular HGB Conc 31.2 g/dL (31.0-36.0); Mean Platelet Volume 9.1 fL (7.4-10.4); Monocytes # (Auto) 0.56 K/mcL (0.10-0.90); Monocytes % (Auto) 6.1 % (1.0-12.0); Neutrophils % (Auto) 82.9 % (38.0-78.0); Platelet Count 261 K/mcL (140-440); RBC 4.14 M/mcL (4.00-5.20); Red Cell Distribution Width 15.8 % (11.5-14.5); WBC 9.2 K/mcL (4.5-11.0)
[2021-02-07 07:03] LABS: ALT/SGPT 38 U/L (<40); AST/SGOT 38 U/L (<32); Albumin/Globulin Ratio 1.1 (1.0-2.3); Alkaline Phosphatase 119 U/L (39-117); Bilirubin,Direct 0.2 mg/dL (<0.3); Bilirubin,Total 0.5 mg/dL (0.1-1.0); Blood Urea Nitrogen 11 mg/dL (8-23); Calcium 8.5 mg/dL (8.6-10.4); Carbon Dioxide 27 mmol/L (22-30); Chloride 102 mmol/L (96-108); Globulin 2.7 gm/dL (2.2-3.7); Glomerular Filtration Rate 73; Glucose 79 mg/dL (70-105); Lactate Dehydrogenase 217 U/L (135-225); Phosphorous 2.7 mg/dL (2.5-4.5); Triglycerides 149 mg/dL (<150); Uric Acid 5.7 mg/dL (2.5-8.0)
[2021-02-07] MEDS: DOCUSATE SODIUM 100 MG CAPSULE PO SCH ×2 (08:00→20:09)
[2021-02-07] MEDS: POLYETHYLENE GLYCOL 3350 17 GM PACKET PO SCH (08:00)
[2021-02-07] MEDS: DILTIAZEM 30 MG TABLET PO SCH ×4 (08:34→20:15)
[2021-02-07] MEDS: cefTRIAXone 1 GM VIAL IV SCH (08:35)
[2021-02-07] MEDS: ENOXAPARIN 40 MG/0.4 ML SYRINGE SQ SCH (08:35)
[2021-02-07] MEDS: SERTRALINE 50 MG TABLET PO SCH (08:35)
[2021-02-07] MEDS: DILTIAZEM 125 MG in DEXTROSE 5% IN WATER 100 ML IV PRN ×2 (09:32→22:22)
[2021-02-07] MEDS ORDERED: POTASSIUM CHLORIDE 40 MEQ in DEXTROSE 5% IN WATER 500 ML IV PRN (11:14)
--- NOTE | 2021-02-07 11:18 | Internal Med Progress Note ---
SUBJECTIVE Subjective Patient information: Note initiated : 02/07/21 at 11:16 am Service Date, if different from initiated Date: [] Patient: Billie Mojica a 75 y/o F admitted on 02/03/21 for Confusion Hypernatremia. Chief Complaint: [confusion] Interval history: History of present illness: Ms. Mojica is a 75 year old F Patient sent into the primary care provider by the nursing facility because she is had confusion for the past couple weeks. He had lab work done at Dr. Tirado[facility] and found have a sodium of 154 and there was also concern for urinary tract infection so patient was sent to the hosp [facility]. Patient had an identical ED visit in November for the same reason with the same findings. However, she was a DNR/comfort care data's and so this was discussed with family member and patient was transitioned back to the nursing facility for comfort care measures. She is admitted this time at the request to treat UTI and correct electrolytes to see if her mentation improves because we do not have a power of assistant county attorney and guardianship has not been established. Is clear the end of life goals and plan need to be addressed. CT brain done last admit was unremarkable. Urinalysis consistent with infection. Patient is a poor historian. And answer some simple review of systems question but does not know why she is here. Patient went into SVT was aborted with adenosine and then went into it later. 02/04 Patient had a few runs of SVT overnight aborted with as needed IV Lopressor. 02/05 Patient had diarrhea yesterday and this morning. C. difficile negative. Urine with gram-negative bacillus. 02/06 Patient seems to be doing better today. Mentation more clear and speech more clear. Diltiazem drip placed last night for SVT. Will DC this morning 02/07: Diltiazem drip was started at around 0400 this morning after patient developed SVT with HR in the 140-150s bpm. Subjective cannot be obtained due to underlying clinical conditions. Constitutional Vitals: Vital Signs Temp Pulse Resp BP Pulse Ox 37.3 C H 83 16 102/76 98 02/07/21 07:09 02/07/21 00:09 02/07/21 10:09 02/07/21 10:01 02/07/21 10:09 Period Temp Pulse Resp BP Sys/Montesinos Pulse Ox Last 24 Hr 36.6 C-37.6 C 83-102 8-29 84-118/57-79 92-100 Intake and Output 02/06/21 02/07/21 02/07/21 21:59 05:59 13:59 Intake Total 3 47 171 Output Total 925 300 Balance -922 -253 171 Weight 57.289 kg Intake & Output: Intake & Output 02/06/21 02/07/21 02/07/21 21:59 05:59 13:59 Intake Total 3 47 171 Output Total 925 300 Balance -922 -253 171 Weight 57.289 kg Intake: Nourishment/Supplement quantity 120 (ml) IV 3 47 51 Cardizem 125 mg In Dextrose 5% 3 47 51 in Water 100 ml @ 5 MG/HR 5 mls /hr IV Q12HP PRN Rx#:[id number] Output: Urine Catheter Amount 925 300 Other: Feeding Ability Total Assistance Nourishment/Supplement name Magic cup Urine Appearance Clear Clear Urine Color Bright Yellow Bright Yellow Bright Yellow Urine Odor Normal General appearance: cooperative and no acute distress Head Head exam: Present atraumatic and normocephalic Eye Eye exam: Present EOMI and PERRL ENT ENT exam: Present mucous membranes moist, normal exam and normal external ear exam Neck Neck exam: Present normal inspection; Absent lymphadenopathy, tenderness and thyromegaly Respiratory Respiratory exam: Absent accessory muscle use, respiratory distress and wheezes Cardiovascular Cardiovascular exam: Present normal rate and rhythm; Absent JVD GI/Abdominal GI/Abdominal exam: Present normal bowel sounds and soft; Absent organomegaly and tenderness Extremities Exam Extremities exam: Present full ROM, normal capillary refill and normal inspection; Absent tenderness Neurological Exam Neurological exam: Present alert and CN II-XII intact; Absent motor sensory deficit and oriented X3 Psychiatric Psychiatric exam: Present normal affect and normal mood; Absent anxious and depressed Skin Skin exam: Present dry and intact OBJ DATA Labs CBC & Chem 7: 02/07/21 05:12 02/07/21 05:12 Labs: Abnormal Lab Results 02/07/21 02/07/21 02/06/21 05:12 05:12 05:14 Hgb 11.7 L POC Hct MCHC RDW 15.8 H Neut % (Auto) 82.9 H Lymph % (Auto) 8.0 L Lymph # (Auto) 0.74 L POC Sodium POC Potassium Potassium 3.0 L POC Chloride Chloride 109 H POC BUN BUN POC Creatinine POC Glucose Calcium 8.5 L 8.5 L POC WB Ioniz Calcium Phosphorus 2.3 L Direct Bilirubin 0.3 H AST 38 H 58 H Alkaline Phosphatase 119 H Lactate Dehydrogenase 247 H Total Protein 5.7 L 5.6 L Albumin 3.0 L 2.7 L Albumin/Globulin Ratio 0.9 L Triglycerides 189 H 02/05/21 02/05/21 02/05/21 14:00 05:18 05:18 Hgb 11.6 L POC Hct MCHC 30.8 L RDW 16.1 H Neut % (Auto) 79.9 H Lymph % (Auto) 11.2 L Lymph # (Auto) 1.08 L POC Sodium POC Potassium 2.8 L* Potassium 3.2 L POC Chloride Chloride 110 H POC BUN 29 H BUN 37 H POC Creatinine POC Glucose Calcium POC WB Ioniz Calcium 1.06 L Phosphorus Direct Bilirubin AST Alkaline Phosphatase Lactate Dehydrogenase Total Protein 5.8 L Albumin 2.8 L Albumin/Globulin Ratio 0.9 L Triglycerides 225 H 02/04/21 02/04/21 02/04/21 20:00 16:10 12:50 Hgb POC Hct 32 L 34 L 33 L MCHC RDW Neut % (Auto) Lymph % (Auto) Lymph # (Auto) POC Sodium 148 H POC Potassium Potassium POC Chloride 110 H 113 H 111 H Chloride POC BUN 60 H 59 H 54 H BUN POC Creatinine 1.3 H POC Glucose 115 H 129 H 144 H Calcium POC WB Ioniz Calcium 0.94 L 1.14 L Phosphorus Direct Bilirubin AST Alkaline Phosphatase Lactate Dehydrogenase Total Protein Albumin Albumin/Globulin Ratio Triglycerides Meds: Medications Acetaminophen (Acetaminophen 325 Mg Tablet) 650 mg PO Q6HP PRN PRN Reason: PAIN/FEVER > 101 Albuterol/Ipratropium (Ipratropium/Albuterol 3 Ml Ampul.Neb) 3 ml NEB Q4HP PRN PRN Reason: Shortness Of Breath Alprazolam (Alprazolam 0.25 Mg Tablet) 0.25 mg PO TIDP PRN PRN Reason: Agitation Last Admin: 02/07/21 05:04 Dose: 0.25 mg Documented by: Ceftriaxone Sodium (Ceftriaxone 1 Gm Vial) 1 gm IV Q24H JASPAL Last Admin: 02/07/21 08:35 Dose: 1 gm Documented by: Diltiazem HCl (Diltiazem 30 Mg Tablet) 30 mg PO QID REPLACED BY [facility] Last Admin: 02/07/21 08:34 Dose: 30 mg Documented by: Docusate Sodium (Docusate Sodium 100 Mg Capsule) 100 mg PO BID REPLACED BY [facility] Last Admin: 02/07/21 08:00 Dose: Not Given Documented by: Enoxaparin Sodium (Enoxaparin 40 Mg/0.4 Ml Syringe) 40 mg SQ DAILY REPLACED BY [facility] Last Admin: 02/07/21 08:35 Dose: 40 mg Documented by: Magnesium Sulfate (Magnesium Sulfate) 2 gm in 50 mls @ 50 mls/hr IV UD PRN PRN Reason: Magnesium </= 1.6 Diltiazem HCl 125 mg/ Dextrose 125 mls @ 5 mls/hr IV Q12HP PRN; Protocol PRN Reason: Tachyarrhythmias Last Titration: 02/07/21 10:57 Dose: 10 mg/hr, 10 mls/hr Documented by: Sodium Chloride (Sodium Chloride 0.9%) 250 mls @ 20 mls/hr IV .[id number] REPLACED BY [facility] Last Admin: 02/06/21 20:36 Dose: 20 mls/hr Documented by: Potassium Chloride 40 meq/ (Dextrose) 520 mls @ 130 mls/hr IV UD PRN PRN Reason: Potassium </= 3 Loperamide HCl (Loperamide 2 Mg Capsule) 2 mg PO PRN PRN PRN Reason: Diarrhea Last Admin: 02/06/21 21:14 Dose: 2 mg Documented by: Metoprolol Tartrate (Metoprolol Tartrate 5 Mg/5 Ml Vial) 5 mg IV Q2HP PRN PRN Reason: Tachyarrhythmias HR>110 Last Admin: 02/04/21 12:15 Dose: 5 mg Documented by: Ondansetron HCl (Ondansetron 4 Mg/2 Ml Vial) 4 mg IV Q4HP PRN PRN Reason: Nausea And Vomiting Polyethylene Glycol (Polyethylene Glycol 3350 17 Gm Packet) 17 gm PO DAILY REPLACED BY [facility] Last Admin: 02/07/21 08:00 Dose: Not Given Documented by: Potassium Chloride (Potassium Chloride 20 Meq Tablet) 40 meq PO UD PRN PRN Reason: Potssium is 3-3.5 Last Admin: 02/04/21 00:37 Dose: 40 meq Documented by: Potassium Chloride (Potassium Chloride 20 Meq Tablet) 40 meq PO UD PRN PRN Reason: Potassium < 3 Last Admin: 02/04/21 04:40 Dose: 40 meq Documented by: Senna (Sennosides 1 Tablet) 2 tab PO DAILYP PRN PRN Reason: Constipation Sertraline HCl (Sertraline 50 Mg Tablet) 50 mg PO DAILY REPLACED BY [facility] Last Admin: 02/07/21 08:35 Dose: 50 mg Documented by: Sodium Chloride (0.9 % Sodium Chloride 10 Ml Syringe) 10 ml IV Q8 REPLACED BY [facility] Last Admin: 02/07/21 06:36 Dose: 10 ml Documented by: Trazodone HCl (Trazodone Hcl 50 Mg Tablet) 50 mg PO QHS REPLACED BY [facility] Last Admin: 02/06/21 21:14 Dose: 50 mg Documented by: A/P Assessment and plan (1) Urinary tract infection: Status: Acute Qualifiers: Hematuria presence: without hematuria Urinary tract infection type: site unspecified Qualified Code(s): N39.0 - Urinary tract infection, site not specified (2) Altered mental status: Status: Acute Qualifiers: Altered mental status type: stupor Qualified Code(s): R40.1 - Stupor (3) SVT (supraventricular tachycardia): Status: Acute (4) ADA (acute kidney injury): Status: Acute Narrative A/P Narrative: 1. SVT: Stays in inpatient ICU with telemetry 2D echocardiogram shows normal biventricular size and systolic function with LVEF 60-65% Diltiazem drip, wean off as tolerated Diltiazem 30mg PO QID. When achieve steady state, will convert to long acting formula 2. UTI in female: Urine culture grew E coli Continue Rocephin IV while in house, convert to oral antibiotics such as Augmentin at time of hospital discharge 3. Electrolyte imbalance including hypernatremia and hypokalemia: Resolved, continue daily CMP to trend electrolyte levels while in house 4. Dementia/delirium: Treat underlying cause, see #2 Continue Sertraline Patient was comfort care only prior to coming into our facility. Continue to communicate with SNF Director [facility] [phone] GI ppx: not currently indicated DVT ppx: Lovenox Code status: DNI DNR Prognosis: guarded Disposition: inpatient ICU Critical Care Time: 35min Time Spent With Patient Time: Total time spent is greater than 50% in coordination of care (as documented) at patient's floor/unit and/or counseling patient: Total time spent with greater than 50% in coordination of care (as documented) at patient's floor/unit and/or counseling patient:: 25 - 35 minutes QUALITY VTE Deep Vein Thrombosis/Pulmonary Embolism Present on Admission: No
[2021-02-07] MEDS: 0.9 % SODIUM CHLORIDE 250 ML IV SCH (11:49)
[2021-02-07] MEDS: LOPERAMIDE 2 MG CAPSULE PO PRN ×2 (17:30→20:49)
[2021-02-07] MEDS: traZODone HCL 50 MG TABLET PO SCH (20:15)
[2021-02-07] MEDS ORDERED: LORazepam 1 MG TABLET PO PRN (21:55)
[2021-02-07] MEDS ORDERED: DILTIAZEM 125 MG/25 ML VIAL IV ONE (22:10)
[2021-02-07] MEDS ORDERED: LORazepam 1 MG TABLET ONE (22:13)
[2021-02-08] MEDS: 0.9 % SODIUM CHLORIDE 250 ML IV SCH ×2 (00:11→13:33)
[2021-02-08] MEDS: ALPRAZolam 0.25 MG TABLET PO PRN ×4 (00:18→18:26)
[2021-02-08] MEDS ORDERED: LORazepam 1 MG TABLET ONE (04:28)
[2021-02-08] MEDS: 0.9 % SODIUM CHLORIDE 10 ML SYRINGE IV SCH ×3 (05:56→20:56)
[2021-02-08] MEDS: ENOXAPARIN 40 MG/0.4 ML SYRINGE SQ SCH (09:02)
[2021-02-08] MEDS: POLYETHYLENE GLYCOL 3350 17 GM PACKET PO SCH (09:02)
[2021-02-08] MEDS: DILTIAZEM 30 MG TABLET PO SCH ×4 (09:02→20:55)
[2021-02-08] MEDS: SERTRALINE 50 MG TABLET PO SCH (09:02)
[2021-02-08] MEDS: DOCUSATE SODIUM 100 MG CAPSULE PO SCH ×2 (09:02→20:56)
[2021-02-08] MEDS: cefTRIAXone 1 GM VIAL IV SCH (09:08)
[2021-02-08 10:01] LABS: Basophils # (Auto) 0.04 K/mcL (0.00-0.20); Basophils % (Auto) 0.3 % (0.0-2.0); Eosinophils # (Auto) 0.26 K/mcL (0.00-0.70); Hematocrit 35.9 % (36.0-48.0); Lymphocytes # (Auto) 0.72 K/mcL (1.50-4.80); Lymphocytes % (Auto) 5.5 % (15.0-49.0); Mean Cell Volume 92.8 fL (80.0-100.0); Mean Corpuscular HGB Conc 30.6 g/dL (31.0-36.0); Mean Platelet Volume 9.7 fL (7.4-10.4); Monocytes % (Auto) 8.4 % (1.0-12.0); Neutrophils % (Auto) 83.8 % (38.0-78.0); Platelet Count 267 K/mcL (140-440); RBC 3.87 M/mcL (4.00-5.20); Red Cell Distribution Width 16.1 % (11.5-14.5); WBC 13.1 K/mcL (4.5-11.0)
[2021-02-08 10:15] LABS: ALT/SGPT 26 U/L (<40); AST/SGOT 24 U/L (<32); Albumin 3.1 gm/dL (3.2-5.2); Albumin/Globulin Ratio 1.1 (1.0-2.3); Alkaline Phosphatase 112 U/L (39-117); Bilirubin,Total 0.3 mg/dL (0.1-1.0); Blood Urea Nitrogen 12 mg/dL (8-23); Calcium 8.2 mg/dL (8.6-10.4); Carbon Dioxide 24 mmol/L (22-30); Chloride 99 mmol/L (96-108); Globulin 2.7 gm/dL (2.2-3.7); Glomerular Filtration Rate 73; Glucose 109 mg/dL (70-105)
--- NOTE | 2021-02-08 10:36 | Internal Med Progress Note ---
SUBJECTIVE Subjective Patient information: Note initiated : 02/08/21 at 10:28 am Service Date, if different from initiated Date: [] Patient: Billie Mojica a 75 y/o F admitted on 02/03/21 for Confusion Hypernatremia. Chief Complaint: [] Interval history: History of present illness: Ms. Mojica is a 75 year old F Patient sent into the primary care provider by the nursing facility because she is had confusion for the past couple weeks. He had lab work done at Dr. Tirado's and found have a sodium of 154 and there was also concern for urinary tract infection so patient was sent to the hospital. Patient had an identical ED visit in November for the same reason with the same findings. However, she was a DNR/comfort care data's and so this was discussed with family member and patient was transitioned back to the nursing facility for comfort care measures. She is admitted this time at the request to treat UTI and correct electrolytes to see if her mentation improves because we do not have a power of assistant district attorney and guardianship has not been established. Is clear the end of life goals and plan need to be addressed. CT brain done last admit was unremarkable. Urinalysis consistent with infection. Patient is a poor historian. And answer some simple review of systems question but does not know why she is here. Patient went into SVT was aborted with adenosine and then went into it later. 02/04 Patient had a few runs of SVT overnight aborted with as needed IV Lopressor. 02/05 Patient had diarrhea yesterday and this morning. C. difficile negative. Urine with gram-negative bacillus. 02/06 Patient seems to be doing better today. Mentation more clear and speech more clear. Diltiazem drip placed last night for SVT. Will DC this morning 02/08: Still on Diltiazem drip overnight. Still have hard time swallowing pills. Afebrile. Last night reported by nursing staff to seem to be psychotic and yelling there was fire everywhere and she wanted to help save people. Denies any chest pain or palpitation. Denies shortness of breath. Review of Systems: denies headache/fever/chills/nausea/vomiting/chest or abdominal pain/cough/dyspnea/diarrhea. Otherwise see above. Constitutional Vitals: Vital Signs Temp Pulse Resp BP Pulse Ox 37.7 C H 85 14 112/67 98 02/08/21 00:01 02/08/21 00:15 02/08/21 07:48 02/08/21 07:14 02/08/21 07:48 Period Temp Pulse Resp BP Sys/Montesinos Pulse Ox Last 24 Hr 37.2 C-37.7 C 85-89 11-27 44-120/32-76 98-100 Intake and Output 02/07/21 02/08/21 02/08/21 21:59 05:59 13:59 Intake Total 640 551 Output Total 625 315 Balance 15 236 Weight 58.922 kg Intake & Output: Intake & Output 02/07/21 02/08/21 02/08/21 21:59 05:59 13:59 Intake Total 640 551 Output Total 625 315 Balance 15 236 Weight 58.922 kg Intake: IV 520 351 Sodium Chloride 0.9% 250 ml @ 247 20 mls/hr IV .[id number] JASPAL Rx#: [id number] Cardizem 125 mg In Dextrose 5% 104 in Water 100 ml @ 5 MG/HR 5 mls /hr IV Q12HP PRN Rx#:[id number] Potassium Chloride 40 Meq In 520 Dextrose 5% in Water 500 ml @ 130 mls/hr IV UD PRN Rx#: [id number] Oral 120 200 Output: Urine Catheter Amount 525 315 Stool 100 Other: Meal Dinner Percent of Meal Consumed 25% Feeding Ability Assist with Tray Set Up Nourishment/Supplement name Vanilla Magic cup Urine Appearance Clear Clear Uretheral (Velez) Clear Clear Urine Color Bright Yellow Bright Yellow Uretheral (Velez) Bright Yellow # Bowel Movements 0 0 General appearance: cooperative and no acute distress Exam: General: Awake, No acute Distress Eyes/N/T: EOMI, Head/Neck: neck supple, CV: RRR, No murmurs, Pulm: Clear b/l, no wheezing/rhonchi/rales Abd: soft, nontender, +BS x4 Ext: no clubbing/cyanosis/edema Neuro: Awake, ,Follows commands and moves all extremities, speech clear today, she knows she is at [place] skin: warm/dry Head Head exam: Present atraumatic and normocephalic Eye Eye exam: Present EOMI and PERRL ENT ENT exam: Present mucous membranes moist, normal exam and normal external ear exam Neck Neck exam: Present normal inspection; Absent lymphadenopathy, tenderness and thyromegaly Respiratory Respiratory exam: Absent accessory muscle use, respiratory distress and wheezes Cardiovascular Cardiovascular exam: Present normal rate and rhythm; Absent JVD GI/Abdominal GI/Abdominal exam: Present normal bowel sounds and soft; Absent organomegaly and tenderness Extremities Exam Extremities exam: Present full ROM, normal capillary refill and normal inspection; Absent tenderness Neurological Exam Neurological exam: Present alert, CN II-XII intact and oriented X3; Absent motor sensory deficit Psychiatric Psychiatric exam: Present normal affect and normal mood; Absent anxious and depressed Skin Skin exam: Present dry and intact OBJ DATA Labs CBC & Chem 7: 02/08/21 05:04 02/08/21 05:04 Labs: Abnormal Lab Results 02/08/21 02/08/21 02/07/21 05:04 05:04 05:12 WBC 13.1 H RBC 3.87 L Hgb 11.0 L 11.7 L Hct 35.9 L MCHC 30.6 L RDW 16.1 H 15.8 H Neut % (Auto) 83.8 H 82.9 H Lymph % (Auto) 5.5 L 8.0 L Lymph # (Auto) 0.72 L 0.74 L [place] # (Auto) 1.10 H Absolute Neutrophils 10.98 H POC Potassium Potassium 3.2 L Chloride POC BUN Glucose 109 H Calcium 8.2 L POC WB Ioniz Calcium Phosphorus Direct Bilirubin AST Alkaline Phosphatase Lactate Dehydrogenase Total Protein 5.8 L Albumin 3.1 L Albumin/Globulin Ratio Triglycerides 02/07/21 02/06/21 02/05/21 05:12 05:14 14:00 WBC RBC Hgb Hct MCHC RDW Neut % (Auto) Lymph % (Auto) Lymph # (Auto) [place] # (Auto) Absolute Neutrophils POC Potassium 2.8 L* Potassium 3.0 L Chloride 109 H POC BUN 29 H Glucose Calcium 8.5 L 8.5 L POC WB Ioniz Calcium 1.06 L Phosphorus 2.3 L Direct Bilirubin 0.3 H AST 38 H 58 H Alkaline Phosphatase 119 H Lactate Dehydrogenase 247 H Total Protein 5.7 L 5.6 L Albumin 3.0 L 2.7 L Albumin/Globulin Ratio 0.9 L Triglycerides 189 H Meds: Medications Acetaminophen (Acetaminophen 325 Mg Tablet) 650 mg PO Q6HP PRN PRN Reason: PAIN/FEVER > 101 Albuterol/Ipratropium (Ipratropium/Albuterol 3 Ml Ampul.Neb) 3 ml NEB Q4HP PRN PRN Reason: Shortness Of Breath Alprazolam (Alprazolam 0.25 Mg Tablet) 0.25 mg PO QIDP PRN PRN Reason: Agitation Last Admin: 02/08/21 09:08 Dose: 0.25 mg Documented by: Ceftriaxone Sodium (Ceftriaxone 1 Gm Vial) 1 gm IV Q24H [facility] Stop: 02/09/21 10:00 Last Admin: 02/08/21 09:08 Dose: 1 gm Documented by: Diltiazem HCl (Diltiazem 30 Mg Tablet) 60 mg PO QID [facility] Last Admin: 02/08/21 09:02 Dose: 60 mg Documented by: Docusate Sodium (Docusate Sodium 100 Mg Capsule) 100 mg PO BID [facility] Last Admin: 02/08/21 09:02 Dose: 100 mg Documented by: Enoxaparin Sodium (Enoxaparin 40 Mg/0.4 Ml Syringe) 40 mg SQ DAILY [facility] Last Admin: 02/08/21 09:02 Dose: 40 mg Documented by: Magnesium Sulfate (Magnesium Sulfate) 2 gm in 50 mls @ 50 mls/hr IV UD PRN PRN Reason: Magnesium </= 1.6 Diltiazem HCl 125 mg/ Dextrose 125 mls @ 5 mls/hr IV Q12HP PRN; Protocol PRN Reason: Tachyarrhythmias Last Admin: 02/07/21 22:22 Dose: 10 mg/hr, 10 mls/hr Documented by: Sodium Chloride (Sodium Chloride 0.9%) 250 mls @ 20 mls/hr IV .[id number] [facility] Last Admin: 02/08/21 00:11 Dose: 20 mls/hr Documented by: Potassium Chloride 40 meq/ (Dextrose) 520 mls @ 130 mls/hr IV UD PRN PRN Reason: Potassium </= 3 Last Infusion: 02/07/21 16:45 Dose: Infused Documented by: Loperamide HCl (Loperamide 2 Mg Capsule) 2 mg PO PRN PRN PRN Reason: Diarrhea Last Admin: 02/07/21 20:49 Dose: 2 mg Documented by: Lorazepam (Lorazepam 1 Mg Tablet) 1 mg PO Q6HP PRN PRN Reason: Agitation Last Admin: 02/07/21 22:15 Dose: 1 mg Documented by: Metoprolol Tartrate (Metoprolol Tartrate 5 Mg/5 Ml Vial) 5 mg IV Q2HP PRN PRN Reason: Tachyarrhythmias HR>110 Last Admin: 02/04/21 12:15 Dose: 5 mg Documented by: Ondansetron HCl (Ondansetron 4 Mg/2 Ml Vial) 4 mg IV Q4HP PRN PRN Reason: Nausea And Vomiting Polyethylene Glycol (Polyethylene Glycol 3350 17 Gm Packet) 17 gm PO DAILY [facility] Last Admin: 02/08/21 09:02 Dose: 17 gm Documented by: Potassium Chloride (Potassium Chloride 20 Meq Tablet) 40 meq PO UD PRN PRN Reason: Potssium is 3-3.5 Last Admin: 02/04/21 00:37 Dose: 40 meq Documented by: Potassium Chloride (Potassium Chloride 20 Meq Tablet) 40 meq PO UD PRN PRN Reason: Potassium < 3 Last Admin: 02/04/21 04:40 Dose: 40 meq Documented by: Senna (Sennosides 1 Tablet) 2 tab PO DAILYP PRN PRN Reason: Constipation Sertraline HCl (Sertraline 50 Mg Tablet) 50 mg PO DAILY [facility] Last Admin: 02/08/21 09:02 Dose: 50 mg Documented by: Sodium Chloride (0.9 % Sodium Chloride 10 Ml Syringe) 10 ml IV Q8 [facility] Last Admin: 02/08/21 05:56 Dose: 10 ml Documented by: Trazodone HCl (Trazodone Hcl 50 Mg Tablet) 50 mg PO QHS [facility] Last Admin: 02/07/21 20:15 Dose: 50 mg Documented by: A/P Assessment and plan (1) Urinary tract infection: Status: Acute Qualifiers: Hematuria presence: without hematuria Urinary tract infection type: site unspecified Qualified Code(s): N39.0 - Urinary tract infection, site not specified (2) Altered mental status: Status: Acute Qualifiers: Altered mental status type: stupor Qualified Code(s): R40.1 - Stupor (3) SVT (supraventricular tachycardia): Status: Acute (4) ADA (acute kidney injury): Status: Acute Narrative A/P Narrative: 1. SVT: Stays in inpatient ICU with telemetry 2D echocardiogram shows normal biventricular size and systolic function with LVEF 60-65% Diltiazem drip, wean off as tolerated Increase Diltiazem from 30mg to 60mg PO QID. When achieve steady state, will convert to long acting formula 2. UTI in female: Urine culture grew E coli Continue Rocephin IV day 6/. 3. Hypokalemia: Continue potassium replacement prtocol Repeat CMP in the AM to trend serum potassium level, repeat replacement as needed 4. Dementia/delirium: Treat underlying cause, see #2 Continue Sertraline Patient was comfort care only prior to coming into our facility. Continue to communicate with SNF Director [facility] [phone] GI ppx: not currently indicated DVT ppx: Lovenox Code status: DNI DNR Prognosis: guarded Disposition: inpatient ICU Critical Care Time: 35min Time Spent With Patient Time: Total time spent is greater than 50% in coordination of care (as documented) at patient's floor/unit and/or counseling patient: QUALITY VTE Deep Vein Thrombosis/Pulmonary Embolism Present on Admission: No
[2021-02-08] MEDS: POTASSIUM CHLORIDE 20 MEQ TABLET PO PRN (15:55)
[2021-02-08] MEDS: traZODone HCL 50 MG TABLET PO SCH (20:56)
[2021-02-09] MEDS: 0.9 % SODIUM CHLORIDE 250 ML IV SCH ×2 (04:06→13:16)
[2021-02-09 07:03] LABS: Basophils # (Auto) 0.03 K/mcL (0.00-0.20); Basophils % (Auto) 0.3 % (0.0-2.0); Eosinophils % (Auto) 2.8 % (0.0-7.0); Hemoglobin 10.7 g/dL (12.0-15.0); Lymphocytes # (Auto) 0.52 K/mcL (1.50-4.80); Lymphocytes % (Auto) 4.8 % (15.0-49.0); Mean Cell Volume 89.2 fL (80.0-100.0); Mean Corpuscular HGB Conc 31.5 g/dL (31.0-36.0); Mean Platelet Volume 9.6 fL (7.4-10.4); Monocytes # (Auto) 0.64 K/mcL (0.10-0.90); Monocytes % (Auto) 5.9 % (1.0-12.0); Neutrophils % (Auto) 86.2 % (38.0-78.0); Platelet Count 251 K/mcL (140-440); RBC 3.81 M/mcL (4.00-5.20); Red Cell Distribution Width 15.9 % (11.5-14.5); WBC 10.8 K/mcL (4.5-11.0)
[2021-02-09 08:09] LABS: ALT/SGPT 40 U/L (<40); AST/SGOT 30 U/L (<32); Albumin 2.7 gm/dL (3.2-5.2); Albumin/Globulin Ratio 0.9 (1.0-2.3); Alkaline Phosphatase 134 U/L (39-117); Bilirubin,Total 0.3 mg/dL (0.1-1.0); Blood Urea Nitrogen 10 mg/dL (8-23); Calcium 8.5 mg/dL (8.6-10.4); Carbon Dioxide 27 mmol/L (22-30); Chloride 103 mmol/L (96-108); Globulin 3.1 gm/dL (2.2-3.7); Glomerular Filtration Rate 85; Glucose 84 mg/dL (70-105)
[2021-02-09] MEDS ORDERED: DILTIAZEM 240 MG CAP.XL.24H PO SCH (09:00)
[2021-02-09] MEDS: POLYETHYLENE GLYCOL 3350 17 GM PACKET PO SCH (10:32)
[2021-02-09] MEDS: cefTRIAXone 1 GM VIAL IV SCH (10:32)
[2021-02-09] MEDS: SERTRALINE 50 MG TABLET PO SCH (10:33)
[2021-02-09] MEDS: 0.9 % SODIUM CHLORIDE 10 ML SYRINGE IV SCH ×3 (10:33→20:44)
[2021-02-09] MEDS: DILTIAZEM 30 MG TABLET PO SCH (10:33)
[2021-02-09] MEDS: ENOXAPARIN 40 MG/0.4 ML SYRINGE SQ SCH (10:33)
[2021-02-09] MEDS: DOCUSATE SODIUM 100 MG CAPSULE PO SCH ×2 (10:33→20:42)
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
[2021-02-09] MEDS: ALPRAZolam 0.25 MG TABLET PO SCH ×3 (13:16→20:42)
[2021-02-09] MEDS: DILTIAZEM 240 MG CAP.XL.24H PO SCH (17:26)
[2021-02-09] MEDS: POTASSIUM CHLORIDE 20 MEQ TABLET PO PRN (20:42)
[2021-02-09] MEDS: traZODone HCL 50 MG TABLET PO SCH (20:42)
[2021-02-10] MEDS: 0.9 % SODIUM CHLORIDE 250 ML IV SCH (02:36)
[2021-02-10] MEDS: ALPRAZolam 0.25 MG TABLET PO PRN (02:57)
[2021-02-10] MEDS: 0.9 % SODIUM CHLORIDE 10 ML SYRINGE IV SCH (05:23)
[2021-02-10 06:45] LABS: Basophils # (Auto) 0.04 K/mcL (0.00-0.20); Basophils % (Auto) 0.5 % (0.0-2.0); Eosinophils # (Auto) 0.27 K/mcL (0.00-0.70); Eosinophils % (Auto) 3.3 % (0.0-7.0); Hematocrit 30.4 % (36.0-48.0); Hemoglobin 9.8 g/dL (12.0-15.0); Lymphocytes # (Auto) 0.44 K/mcL (1.50-4.80); Lymphocytes % (Auto) 5.4 % (15.0-49.0); Mean Cell Volume 89.4 fL (80.0-100.0); Mean Corpuscular HGB Conc 32.2 g/dL (31.0-36.0); Mean Platelet Volume 9.8 fL (7.4-10.4); Monocytes # (Auto) 0.59 K/mcL (0.10-0.90); Monocytes % (Auto) 7.3 % (1.0-12.0); Neutrophils % (Auto) 83.5 % (38.0-78.0); Platelet Count 283 K/mcL (140-440); Red Cell Distribution Width 15.6 % (11.5-14.5); WBC 8.1 K/mcL (4.5-11.0)
[2021-02-10 07:15] LABS: ALT/SGPT 24 U/L (<40); AST/SGOT 15 U/L (<32); Albumin 2.7 gm/dL (3.2-5.2); Alkaline Phosphatase 118 U/L (39-117); Bilirubin,Total 0.3 mg/dL (0.1-1.0); Blood Urea Nitrogen 12 mg/dL (8-23); Calcium 8.4 mg/dL (8.6-10.4); Carbon Dioxide 31 mmol/L (22-30); Chloride 102 mmol/L (96-108); Globulin 2.8 gm/dL (2.2-3.7); Glomerular Filtration Rate 85; Glucose 77 mg/dL (70-105)
[2021-02-10] MEDS: DILTIAZEM 240 MG CAP.XL.24H PO SCH (08:26)
[2021-02-10] MEDS: ALPRAZolam 0.25 MG TABLET PO SCH ×2 (08:26→13:20)
[2021-02-10] MEDS: ENOXAPARIN 40 MG/0.4 ML SYRINGE SQ SCH (08:26)
[2021-02-10] MEDS: POLYETHYLENE GLYCOL 3350 17 GM PACKET PO SCH (08:26)
[2021-02-10] MEDS: DOCUSATE SODIUM 100 MG CAPSULE PO SCH (08:27)
[2021-02-10] MEDS: SERTRALINE 50 MG TABLET PO SCH (08:27)
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
== END 2021-02-10 16:18 | disposition other institution (70) | DRG 689 ==
LOC: ED 14:55 → ICU 23:01
PROVIDERS: ADMIT Internal Medicine; ATTEND Internal Medicine